=== PATIENT | female | born 1970 | race Caucasian/White ===

== ENCOUNTER 2017-02-18 14:35 | Observation (INO) | payer OTHER ==
--- NOTE | 2017-02-18 14:43 | PDOC ---
Rapid Medical Evaluation Time Seen by Provider: 02/18/17 14:41 Medical Evaluation: Allergies Allergy/AdvReac Type Severity Reaction Status Date / Time Penicillins Allergy Verified 02/18/17 14:40 shellfish derived Allergy Verified 02/18/17 14:40 02/18/17 14:41 I have performed a brief in-person evaluation of this patient. 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 Better now. H/o anemia s/p transfusion in the past and asthma Pertinent physical exam findings:Well maría and stable w/ unremarkable exam I have ordered the following:ekg The patient will proceed to the ED for further evaluation. 02/18/17 14:43 Discharge Disposition - Referrals Referrals: Sally Christine MD [Primary Care Provider] - - Patient Instructions - Post Discharge Activity
[2017-02-18 14:44] VITALS: BMI 30.9
--- NOTE | 2017-02-18 15:43 | PDOC ---
History of Present Illness - General Chief Complaint: Blood Pressure Problem Stated Complaint: Blood Pressure Problem Time Seen by Provider: 02/18/17 14:41 History Source: Patient Exam Limitations: No Limitations - History of Present Illness Initial Comments: 02/18/17 16:13 My chief complaint: Right-sided chest pain with shortness of breath after running after a student at around 1:15 today History of present illness: Patient is a 46-year-old female with a history of asthma, borderline hypertension, cancerous colon polyp and iron deficiency anemia requiring transfusion 2011 here today due to patient becoming short of breath and having right-sided chest pain with palpitations when she 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 Patient denies any wheezing. Patient reports that chest pain, with palpitations and shortness of breath lasted approximately 30 minutes to 45 minutes. Patient was seen by the nurse at the school and her blood pressure was noted to be 180/ 80. Patient's blood pressure at 1:30 improved was 160/84. Patient blood pressure at 1620 p.m. was 170/90 however patient did not have any shortness of breath or chest pain at that time. Denied having any cough or any wheezing during this period of time. Patient reports that she had a D&C at 08/2016 and was on iron tablets until November 2016, she was told by her primary care provider to alternate amount however patient decided to stop taking iron altogether due to it bothering her stomach with constipation. Patient denies that she has been feeling tired or short of breath or having any difficulty breathing prior to today's event. Patient presently denies any chest pain or any shortness of breath or any palpitations. She reports that her periods are less heavy since D & C. 02/18/17 16:33 02/18/17 16:39 Timing/Duration: gone Associated Symptoms: reports: chest pain (right sided ), shortness of breath, other (palpitiations ) Past History - Past Medical History Allergies/Adverse Reactions: Allergies Allergy/AdvReac Type Severity Reaction Status Date / Time Penicillins Allergy Verified 02/18/17 14:40 shellfish derived Allergy Verified 02/18/17 14:40 Home Medications: Ambulatory Orders Ferrous Sulfate [Feosol] 35 mg PO DAILY 01/23/15 Anemia: Yes Asthma: Yes (SEASONAL ASTHMA) Cancer: Yes (DESCENDING COLON CANCER 2014-polyp was removed) Cardiac Disorders: No CVA: No COPD: No CHF: No DVT: No Dementia: No Diabetes: No GI Disorders: No Disorders: No HTN: No Hypercholesterolemia: No Liver Disease: No Seizures: No Thyroid Disease: No - Surgical History Abdominal Surgery: No Appendectomy: No Cardiac Surgery: No Cholecystectomy: No Lung Surgery: No Neurologic Surgery: No Orthopedic Surgery: No - Suicide/Smoking/Psychosocial Hx Smoking History: Never smoked Have you smoked in the past 12 months: No Information on smoking cessation initiated: No Hx Alcohol Use: No Drug/Substance Use Hx: No Substance Use Type: None Hx Substance Use Treatment: No Review of Systems - Review of Systems Able to Perform ROS?: Yes Constitutional: No: Symptoms Reported HEENTM: No: Symptoms Reported Respiratory: Yes: Shortness of Breath, SOB with Exertion Cardiac (ROS): Yes: Chest Pain (right sided ), Palpitations, Chest Tightness ABD/GI: No: Symptoms Reported : No: Symptoms Reported Musculoskeletal: No: Symptoms Reported Integumentary: No: Symptoms Reported Neurological: No: Symptoms reported *Physical Exam - Vital Signs Last Vital Signs Temp Pulse Resp BP Pulse Ox 98.1 F 96 H 18 165/92 100 02/18/17 14:41 02/18/17 14:41 02/18/17 14:41 02/18/17 14:41 02/18/17 14:41 - Physical Exam General Appearance: Yes: Appropriately Dressed HEENT: positive: Normal ENT Inspection, Other (conjunctiva b/l pale ) Respiratory/Chest: positive: Lungs Clear, Normal Breath Sounds. negative: Chest Tender, Respiratory Distress Cardiovascular: positive: Regular Rhythm, Regular Rate, S1, S2 Integumentary: positive: Normal Color Neurologic: positive: Fully Oriented, Alert, Normal Response Heart Score/ECG Review - ECG Impressions Comment:: 02/18/17 16:[address] Andre CHU Treatment Course - LABORATORY CBC & Chemistry Diagram: 02/18/17 15:41 02/18/17 16:57 Medical Decision Making - Medical Decision Making 02/18/17 16:25 Patient is a 46-year-old female with a history of asthma, borderline hypertension and iron deficiency anemia requiring transfusion 2012 here today due to patient becoming short of breath and having right-sided chest pain with palpitations when she had to run after a student at her job today that was trying to leave at approximately 1:15 today. She denies wheezing. Patient reports that chest pain, with palpitations and shortness of breath lasted approximately 30 minutes to 45 minutes. Patient was seen by the nurse at the school and her blood pressure was noted to be 180/80. Patient's blood pressure at 1:30 improved was 160/84. Patient blood pressure at 1620 p.m. was 170/90 however patient did not have any shortness of breath or chest pain at that time. Denied having any cough or any wheezing during this period of time. Patient reports that she had a D&C at 08/2016 and was on iron tablets until November 2016, she was told by her primary care provider to alternate amount however patient decided to stop taking iron altogether due to it bothering her stomach with constipation. Patient denies that she has been feeling tired or short of breath or having any difficulty breathing prior to today's event. Patient presently denies any chest pain or any shortness of breath or any palpitations. 02/18/17 16:35 Elevated BP right sided chest pain 'shortness of breath resolved prior to arrival here R/O worsening anemia PLAN: EKG reviewed by Dr. Powell CBC with Diff 02/18/17 16:36 Laboratory Tests 02/18/17 15:41 WBC 4.1 RBC 3.98 Hgb 7.0 L Hct 24.0 L MCV 60.2 L MCH 17.5 L MCHC 29.1 L RDW 20.9 H Plt Count 361 MPV 8.8 Neutrophils % 58.8 Lymphocytes % 30.2 Monocytes % 9.5 Eosinophils % 0.8 Basophils % 0.7 pt. is able enough to be moved to main ED for further evaluation of symptomatic worsening anemia Vannessa Charge Nurse aware Dr. Powell 02/18/17 16:40 *DC/Admit/Observation/Transfer Diagnosis at time of Disposition: Symptomatic anemia - Discharge Dispostion Condition at time of disposition: Stable - Referrals Referrals: Sally Christine MD [Primary Care Provider] - - Patient Instructions - Post Discharge Activity
[2017-02-18 15:50] LABS: BASOPHIL 0.7 % (0-2.0); EOSINOPHIL 0.8 % (0-4.5); MCHC 29.1 g/dl (32.0-36.0); MEAN CELL VOLUME 60.2 fl (80-96); MEAN PLT VOLUME 8.8 fl (7.5-11.1); NEUTROPHILS 58.8 % (42.8-82.8); PLATELET COUNT 361 K/MM3 (134-434); RDW 20.9 % (11.6-15.6); WHITE BLOOD COUNT 4.1 K/mm3 (4.0-10.0)
[2017-02-18 16:00] LABS: MCH 17.5 pg (25.7-33.7)
[2017-02-18 17:18] LABS: INR 1.16 (0.82-1.09); PROTHROMBIN TIME (PATIENT) 13.1 SEC (9.98-11.88)
--- NOTE | 2017-02-18 17:30 | PDOC ---
*Physical Exam - Vital Signs Last Vital Signs Temp Pulse Resp BP Pulse Ox 98.1 F 96 H 18 165/92 100 02/18/17 14:41 02/18/17 14:41 02/18/17 14:41 02/18/17 14:41 02/18/17 14:41 - Physical Exam Comments: 02/18/17 17:55 The patient is a 46 year old female with a significant PMH of anemia who presents to the emergency department with tight chest pain and shortness of breath while running after a student today. The patient states she has had transfusions in the past. The patient reports she has not been taking her iron supplements due to side effects. The patient notes that she is presently feeling much better. The patient denies headache and dizziness. Denies fever, chills, nausea, vomit, diarrhea and constipation. Allergies: Penicillins, shellfish Past surgical history: None reported Social history: No reported cigarette, drug, or alcohol use. PCP: Dr. Guardado GENERAL: Awake, alert, and fully oriented, in no acute distress HEAD: No signs of trauma EYES: PERRLA, EOMI, sclera anicteric, conjunctiva clear ENT: Auricles normal inspection, hearing grossly normal, nares patent, oropharynx clear without exudates. Moist mucosa NECK: Normal ROM, supple, no lymphadenopathy, JVD, or masses LUNGS: Breath sounds equal, clear to auscultation bilaterally. No wheezes, and no crackles HEART: Regular rate and rhythm, normal S1 and S2, no murmurs, rubs or gallops ABDOMEN: Soft, nontender, normoactive bowel sounds. No guarding, no rebound. No masses EXTREMITIES: Normal range of motion, no edema. No clubbing or cyanosis. No cords, erythema, or tenderness NEUROLOGICAL: Cranial nerves II through XII grossly intact. Normal speech, normal gait SKIN: Warm, Dry, normal turgor, no rashes or lesions noted. <Liliana Quick - Last Filed: 02/18/17 17:55> - Vital Signs Last Vital Signs Temp Pulse Resp BP Pulse Ox 98.1 F 96 H 18 165/92 100 02/18/17 14:41 02/18/17 14:41 02/18/17 14:41 02/18/17 14:41 02/18/17 14:41 <Sarah Powell - Last Filed: 02/18/17 19:14> ED Treatment Course - LABORATORY CBC & Chemistry Diagram: 02/18/17 15:41 02/18/17 16:57 - ADDITIONAL ORDERS Additional order review: Laboratory Results 02/18/17 16:57 PT with INR 13.10 H INR 1.16 H 02/18/17 15:41 RBC 3.98 MCV 60.2 L MCHC 29.1 L RDW 20.9 H MPV 8.8 Neutrophils % 58.8 Lymphocytes % 30.2 Monocytes % 9.5 Eosinophils % 0.8 Basophils % 0.7 <Liliana Quick - Last Filed: 02/18/17 17:55> - LABORATORY CBC & Chemistry Diagram: 02/18/17 15:41 02/18/17 16:57 - ADDITIONAL ORDERS Additional order review: 02/18/17 15:41 RBC 3.98 MCV 60.2 L MCHC 29.1 L RDW 20.9 H MPV 8.8 Neutrophils % 58.8 Lymphocytes % 30.2 Monocytes % 9.5 Eosinophils % 0.8 Basophils % 0.7 <Sarah Powell - Last Filed: 02/18/17 19:14> *DC/Admit/Observation/Transfer - Attestations Scribe Attestion: 02/18/17 18:00 Documentation prepared by Liliana Quick, acting as medical equipment repair technician for Sarah Powell MD. <Liliana Quick - Last Filed: 02/18/17 17:55> - Discharge Dispostion Admit: Yes <Sarah Powell - Last Filed: 02/18/17 19:14> Diagnosis at time of Disposition: Symptomatic anemia - Discharge Dispostion Condition at time of disposition: Stable - Referrals Referrals: Sally Christine MD [Primary Care Provider] - - Patient Instructions - Post Discharge Activity
[2017-02-18 17:48] LABS: ANISOCYTOSIS 2+; HYPOCHROMIA 3+; MICROCYTOSIS 2+; OVALOCYTE 1+; POLYCHROMASIA 1+; TARGET CELLS 2+; TEAR DROP CELLS FEW
[2017-02-18 18:07] LABS: ALBUMIN 3.8 g/dl (3.4-5.0); ANION GAP 5 (8-16); BILIRUBIN,TOTAL 0.3 mg/dL (0.2-1.0); CALCIUM 8.3 mg/dL (8.5-10.1); CO2 27 mmol/L (21-32); CREATININE 0.6 mg/dL (0.55-1.02); GLUCOSE,RANDOM 89 mg/dL (74-106); SGOT/AST 16 U/L (15-37); SGPT/ALT 15 U/L (12-78); TOT PROT 7.3 g/dl (6.4-8.2)
[2017-02-18 18:08] LABS: ALK PHOS 88 U/L (45-117)
[2017-02-18 18:15] LABS: FERRITIN 2.348 ng/ml (6.9-282.5)
--- NOTE | 2017-02-18 19:31 | PN ---
Teaching Attending Note Name of Resident: Preet Choe ATTENDING PHYSICIAN STATEMENT I saw and evaluated the patient. I reviewed the resident's note and discussed the case with the resident. I agree with the resident's findings and plan as documented. SUBJECTIVE: 46 yo F with hx of Asthma, htn, cancerous colon polp, and fe def anemia, who presents with chest pain and shortness of breath. States she was running after a student when it happened. States her chest pain and shortness of breath lasted about 30-45 minutes. States she was seen by the nurse at school and was found to have elevated BP at 180/80. It improved after to 160/84. Pt. States her Chest Pain was on the right side and resolved after rest. No current chest pain, pressure, or shortness of breath. States she had a recent colonoscopy with polyp removal, that was deemed to be cancerous. States she also had a D &C for a fibriod and her periods have become manageable, last period being at the end of January. States she did not use excessive pads and her periods were light. No dizziness or lightheadedness. OBJECTIVE: Physical: VS: Vital Signs Period Temp Pulse Resp BP Sys/Argueta Pulse Ox Last 24 Hr 98.1 F 96 18 165/92 100 GEN: NAD, Resting in bed, able to speak full sentences HEENT: NCAT, PERRL, Throat without erythema or exudates CARD: RRR S1, S2 RESP: CTAB ABD: BSX4, NTD to palpation EXT: - C/C/E RECTAl: Defferred CBCD WBC 4.1 K/mm3 (4.0-10.0) 02/18/17 15:41 RBC 3.98 M/mm3 (3.60-5.2) 02/18/17 15:41 Hgb 7.0 GM/dL (10.7-15.3) L 02/18/17 15:41 Hct 24.0 % (32.4-45.2) L 02/18/17 15:41 MCV 60.2 fl (80-96) L 02/18/17 15:41 MCHC 29.1 g/dl (32.0-36.0) L 02/18/17 15:41 RDW 20.9 % (11.6-15.6) H 02/18/17 15:41 Plt Count 361 K/MM3 (134-434) 02/18/17 15:41 MPV 8.8 fl (7.5-11.1) 02/18/17 15:41 CMP Sodium 139 mmol/L (136-145) 02/18/17 16:57 Potassium 3.9 mmol/L (3.5-5.1) 02/18/17 16:57 Chloride 107 mmol/L (98-107) 02/18/17 16:57 Carbon Dioxide 27 mmol/L (21-32) 02/18/17 16:57 Anion Gap 5 (8-16) L 02/18/17 16:57 BUN 12 mg/dL (7-18) 02/18/17 16:57 Creatinine 0.6 mg/dL (0.55-1.02) 02/18/17 16:57 Creat Clearance w eGFR > 60 (>60) 02/18/17 16:57 Calcium 8.3 mg/dL (8.5-10.1) L 02/18/17 16:57 Total Bilirubin 0.3 mg/dL (0.2-1.0) 02/18/17 16:57 AST 16 U/L (15-37) 02/18/17 16:57 ALT 15 U/L (12-78) 02/18/17 16:57 Alkaline Phosphatase 88 U/L (45-117) 02/18/17 16:57 Total Protein 7.3 g/dl (6.4-8.2) 02/18/17 16:57 Albumin 3.8 g/dl (3.4-5.0) 02/18/17 16:57 CXR- PENDING EKG- NSR- NO St-T changes ASSESSMENT AND PLAN: 46 yo F with hx of Asthma, htn, cancerous colon polp, and fe def anemia, who presents with chest pain and shortness of breath, being admitted for Symptomatic Anemia 1.) Microcytic Anemia- Symptomatic - Severe FE Defeciency - FU Rest of iron studies, Ferritin 2 - 1U PRBC, recheck CBC - Keep Hgb >7 - Needs outpt. heme fu for Venofer - Had prior normalo Hgb so doubt thallesemia - Stool Occult when pt. willing 2.) Chest Pain-Atypical - Most likely caused by Anemia - Trend Trop 3.) Hx. Of Cancerous Polyp - Needs fu GI - Heme for Salmon syndrome eval 4.) HTN - Start HCTZ low dose - Needs to be followed by PCP oupt 5.) Asthma - Not in Exacerbation - Nebs Prn 6.) Dvt Ppx - Low Risk - SCDs Place in Obs-Tele
--- NOTE | 2017-02-18 19:56 | HP ---
CHIEF COMPLAINT: Chest tightness and SOB HISTORY OF PRESENT ILLNESS: 46yo F with history of asthma and iron deficiency anemia who presents to the ED for shortness of breath and R-sided nonradiating chest tightness. 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 She reports her chest pain lasting for about 30-45 minutes. Pt denies any associated jaw claudication, dizziness/lightheadedness, and wheezing during her CP episode. Pt's LMP was end of January described as normal in flow, however she received a D&C for fibroids in August 2016 of this year. Pt also reports she previously was transfused in 2011 thought to be due to a colon polyp found to be cancerous for which received a polypectomy with negative margins. Pt was also found to have a BP of 180/80 at the time of her CP event with repeat showing 160/84. Pt reports always having "borderline HTN," however today she is reporting having a headache. She states she has never taken anything for her HTN and has been controlling her BP with diet and exercise. Denies visual disturbances with her headache and any motor/sensory deficits. ER course was notable for: (1) CBC revealing Hgb of 7.0 (2) Transfusion of 1U PRBC PAST MEDICAL HISTORY: Asthma exacerbated by seasonal allergies Cancerous colon polyp (s/p polypectomy with clear margins) Iron deficiency anemia PAST SURGICAL HISTORY: Colonoscopy with polypectomy x2 Social History: Smoking: Denies Alcohol: Denies Drugs: Denies Allergies Penicillins Allergy (Verified 02/18/17 14:40) shellfish derived Allergy (Verified 02/18/17 14:40) HOME MEDICATIONS: Home Medications Medication Instructions Recorded Ferrous Sulfate [Feosol] 35 mg PO DAILY 01/23/15 REVIEW OF SYSTEMS CONSTITUTIONAL: Absent: fever, chills, diaphoresis, generalized weakness, malaise, loss of appetite, weight change HEENT: Absent: rhinorrhea, nasal congestion, throat pain, throat swelling, difficulty swallowing, mouth swelling, ear pain, eye pain, visual changes CARDIOVASCULAR: Present: Chest Pain Absent: syncope, palpitations, irregular heart rate, lightheadedness, peripheral edema RESPIRATORY: Present: Shortness of breath Absent: cough, dyspnea with exertion, orthopnea, wheezing, stridor, hemoptysis GASTROINTESTINAL: Absent: abdominal pain, abdominal distension, nausea, vomiting, diarrhea, constipation, melena, hematochezia GENITOURINARY: Absent: dysuria, frequency, urgency, hesitancy, hematuria, flank pain, genital pain MUSCULOSKELETAL: Absent: myalgia, arthralgia, joint swelling, back pain, neck pain SKIN: Absent: rash, itching, pallor HEMATOLOGIC/IMMUNOLOGIC: Absent: easy bleeding, easy bruising, lymphadenopathy, frequent infections ENDOCRINE: Absent: unexplained weight gain, unexplained weight loss, heat intolerance, cold intolerance NEUROLOGIC: Present: Headache Absent: focal weakness or paresthesias, dizziness, unsteady gait, seizure, mental status changes, bladder or bowel incontinence PSYCHIATRIC: Absent: anxiety, depression, suicidal or homicidal ideation, hallucinations. PHYSICAL EXAMINATION Vital Signs - 24 hr 02/18/17 14:41 Temperature 98.1 F Pulse Rate 96 H Respiratory 18 Rate Blood Pressure 165/92 O2 Sat by Pulse 100 Oximetry (%) GENERAL: NAD, alert, awake HEENT: No JVD, pale mucosa, moist mucosa, no scleral icterus or injections LUNGS: CTA bilaterally. No wheezes, rhonchi, rales. No accessory muscle use. HEART: RRR, normal S1 and S2 without murmur ABDOMEN: Soft, nontender, nondistended, normoactive bowel sounds, no guarding, no rebound. No hepatomegaly. MUSCULOSKELETAL: No bony deformities or tenderness. No CVA tenderness. EXTREMITIES: 2+ DP pulses, warm, No edema, Cap refill <2sec, no calf tenderness NEUROLOGICAL: Nonfocal. Normal speech. Normal gait. PSYCHIATRIC: Cooperative. Good eye contact. Appropriate mood and affect. SKIN: Warm, no rashes or lesions noted Laboratory Results - last 24 hr 02/18/17 02/18/17 02/18/17 15:41 16:40 16:57 WBC 4.1 RBC 3.98 Hgb 7.0 L Hct 24.0 L MCV 60.2 L MCH 17.5 L MCHC 29.1 L RDW 20.9 H Plt Count 361 MPV 8.8 Neutrophils % 58.8 Lymphocytes % 30.2 Monocytes % 9.5 Eosinophils % 0.8 Basophils % 0.7 Hypochromia 3+ Platelet Comment Polychromasia 1+ Anisocytosis 2+ Microcytosis 2+ Target Cells 2+ Tear Drop Cells Few Ovalocytes 1+ Retic Count PT with INR 13.10 H INR 1.16 H Sodium Potassium Chloride Carbon Dioxide Anion Gap BUN Creatinine Creat Clearance w eGFR Random Glucose Calcium Ferritin 2.348 L Total Bilirubin AST ALT Alkaline Phosphatase LD Total 208 Total Protein Albumin Serum , Qual Blood Type Antibody Screen Crossmatch 02/18/17 02/18/17 02/18/17 16:57 16:57 16:57 WBC RBC Hgb Hct MCV MCH MCHC RDW Plt Count MPV Neutrophils % Lymphocytes % Monocytes % Eosinophils % Basophils % Hypochromia Platelet Comment Polychromasia Anisocytosis Microcytosis Target Cells Tear Drop Cells Ovalocytes Retic Count 1.38 PT with INR INR Sodium 139 Potassium 3.9 Chloride 107 Carbon Dioxide 27 Anion Gap 5 L BUN 12 Creatinine 0.6 Creat Clearance w eGFR > 60 Random Glucose 89 Calcium 8.3 L Ferritin Total Bilirubin 0.3 AST 16 ALT 15 Alkaline Phosphatase 88 LD Total Total Protein 7.3 Albumin 3.8 Serum , Qual Blood Type B POSITIVE Antibody Screen Negative Crossmatch See Detail 02/18/17 18:37 WBC RBC Hgb Hct MCV MCH MCHC RDW Plt Count MPV Neutrophils % Lymphocytes % Monocytes % Eosinophils % Basophils % Hypochromia Platelet Comment Polychromasia Anisocytosis Microcytosis Target Cells Tear Drop Cells Ovalocytes Retic Count PT with INR INR Sodium Potassium Chloride Carbon Dioxide Anion Gap BUN Creatinine Creat Clearance w eGFR Random Glucose Calcium Ferritin Total Bilirubin AST ALT Alkaline Phosphatase LD Total Total Protein Albumin Serum , Qual Negative Blood Type Antibody Screen Crossmatch ASSESSMENT/PLAN: 46yo F with history of iron deficiency anemia and asthma who developed shortness of breath and chest tightness when running after a kid at work. Pt has resolution of symptoms currently with exception of headache. Hgb 7.0, receiving 1U PRBC currently. 1) Microcytic Anemia --2/2 to chronic iron deficiency anemia --Hgb 7.0 currently --Transfuse 1U PRBC (type and screen already worked up) --CBC trend in morning --Continue iron supplementation --Ferritin of 2.348 --Will need outpt follow-up with Hematology --Pt currently in Desk bed of ER so hemoccult deferred --Will reassess when in hospital room to obtain stool guiaic. 2) Atypical chest pain --Atypical due to timing, location, associated symptoms --Most likely 2/2 to anemia and asthma --EKG - NSR without std/lorena, normal axis, QTc --Troponin ordered 3) Hypertension --Monitor BP --Norvasc 5mg PO once due to elevated BP currently --Currently BP 165/92 FEN: Fluids: Not indicated currently Electrolyte abnormalities: None currently Nutrition: Regular Diet PPX: DVT - Early ambulation Dispo: Place into tele obs Case discussed with Dr. Kurt Liao, DO - Internal Medicine PGY-1 Visit type - Emergency Visit Emergency Visit: Yes ED Registration Date: 02/18/17 Care time: The patient presented to the Emergency Department on the above date and was hospitalized for further evaluation of their emergent condition. - New Patient This patient is new to me today: Yes Date on this admission: 02/20/17 - Critical Care Critical Care patient: No
[2017-02-18] MEDS ORDERED: ACETAMINOPHEN 325 MG TABLET (FP) PO ONE (20:00)
[2017-02-18] MEDS ORDERED: amLODIPine BESYLATE 5 MG TABLET (FP) PO ONE (20:00)
[2017-02-18] MEDS ORDERED: amLODIPine BESYLATE 5 MG TABLET (FP) ONE (20:18)
[2017-02-18] MEDS ORDERED: ACETAMINOPHEN 325 MG TABLET (FP) ONE (20:18)
[2017-02-19 04:06] LABS: URINE APPEARANCE CLEAR; URINE BILIRUBIN NEGATIVE (NEGATIVE); URINE BLOOD 2+ (NEGATIVE); URINE COLOR STRAW; URINE GLUCOSE (UA) NEGATIVE (NEGATIVE); URINE KETONE TRACE (NEGATIVE); URINE NITRITE NEGATIVE (NEGATIVE); URINE PROTEIN NEGATIVE (NEGATIVE); URINE UROBILINOGEN NEGATIVE mg/dL (0.2-1.0)
[2017-02-19 04:12] LABS: URINE RBC 4 /hpf (0-3); URINE WBC 1 /hpf (3-5)
[2017-02-19 07:44] LABS: MCHC 29.6 g/dl (32.0-36.0); MEAN CELL VOLUME 62.3 fl (80-96); PLATELET COUNT 294 K/MM3 (134-434); RDW 22.4 % (11.6-15.6); WHITE BLOOD COUNT 3.4 K/mm3 (4.0-10.0)
[2017-02-19] MEDS ORDERED: IRON SUCROSE INJECTION 200 MG in SODIUM CHLORIDE 240 ML IVPB ONE (07:57)
[2017-02-19 08:04] LABS: MCH 18.4 pg (25.7-33.7)
--- NOTE | 2017-02-19 08:23 | EKG ---
Test Reason : Blood Pressure : / mmHG Vent. Rate : 090 BPM Atrial Rate : 090 BPM P-R Int : 144 ms QRS Dur : 080 ms QT Int : 344 ms P-R-T Axes : 062 021 034 degrees QTc Int : 420 ms NORMAL SINUS RHYTHM POSSIBLE LEFT ATRIAL ENLARGEMENT BORDERLINE ECG WHEN COMPARED WITH ECG OF 21-AUG-2016 16:12, NO SIGNIFICANT CHANGE WAS FOUND Confirmed by MD Crespo Daniel ([id number]) on 02/18/2017 3:06:19 PM Also confirmed by MD Crespo Daniel [id number]), business editor HARDIK COSME ([id number]) on 02/19/2017 8:23:41 AM Referred By: Confirmed By:Hardik Crespo MD
[2017-02-19] MEDS ORDERED: IRON SUCROSE INJECTION 200 MG in SODIUM CHLORIDE 100 ML IVPB ONE (08:45)
[2017-02-19] MEDS ORDERED: FLU VACCINE QUAD 60 MCG/0.5 ML (MDV 17-18) IM ONE (09:00)
[2017-02-19] MEDS ORDERED: FERROUS SO4 325 MG TABLET (FP) PO SCH (10:00)
[2017-02-19 12:20] LABS: URINE LEUK ESTERASE Negative (NEGATIVE)
--- NOTE | 2017-02-19 13:58 | CONSULT ---
Consult Consult Specialty:: Hematology Referred by:: MARBLE WORKER - History of Present Illness History of Present Illness: 46 yo F with hx of Asthma, htn, cancerous colon polp, and fe def anemia, who presents with chest pain and shortness of breath. S States she had a recent colonoscopy with polyp removal, that was deemed to be cancerous. States she also had a D &C for a fibriod and her periods have become manageable, last period being at the end of January. States she did not use excessive pads and her periods were light. No dizziness or lightheadedness. Hematology consulted for anemia. - History Source History Provided By: Patient, Family Member, Medical Record Limitations to Obtaining History: No Limitations - Past Medical History Gastrointestinal: Yes: GERD ...LMP: 08/11/16 - Past Surgical History Past Surgical History: Yes: , Upper Endoscopy - Alcohol/Substance Use Hx Alcohol Use: No History of Substance Use: reports: None - Smoking History Smoking history: Never smoked Have you smoked in the past 12 months: No - Social History History of Recent Travel: No Home Medications - Allergies Allergies/Adverse Reactions: Allergies Allergy/AdvReac Type Severity Reaction Status Date / Time Penicillins Allergy Verified 02/18/17 14:40 shellfish derived Allergy Verified 02/18/17 14:40 - Home Medications Home Medications: Ambulatory Orders Fe Polysac/Cyanocobal/FA [Niferex-150 Forte -] 1 each PO BID #60 capsule Polyethylene Glycol 3350 [Miralax (For Daily Use) -] 17 gm PO DAILY #1 bottle Family Disease History - Family Disease History Family History: Denies Review of Systems - Review of Systems Constitutional: denies: Fever, Lethargy, Loss of Appetite, Unintentional Wgt. Loss, Weakness Neck: denies: Decreased ROM, Lumps Cardiovascular: reports: Shortness of Breath. denies: Chest Pain, Edema Respiratory: reports: Exercise Intolerance, SOB. denies: Cough, Hemoptysis, Orthopnea, PND Musculoskeletal: reports: No Symptoms Integumentary: reports: No Symptoms Neurological: reports: No Symptoms Hematology/Lymphatic: reports: No Symptoms Physical Exam Vital Signs: Vital Signs Temperature 98.0 F 02/19/17 10:00 Pulse Rate 79 02/19/17 10:00 Respiratory Rate 18 02/19/17 10:00 Blood Pressure 142/86 02/19/17 10:00 O2 Sat by Pulse Oximetry (%) 98 02/19/17 12:00 Constitutional: Yes: Well Nourished, No Distress, Calm Eyes: Yes: Other (pale) HENT: Yes: Atraumatic, Normocephalic Neck: Yes: Supple, Trachea Midline Cardiovascular: Yes: Regular Rate and Rhythm Respiratory: Yes: Regular, CTA Bilaterally Gastrointestinal: Yes: Normal Bowel Sounds, Soft Edema: No Labs: CBC, BMP 02/19/17 05:35 02/18/17 16:57 Problem List - Problems (1) Symptomatic anemia Code(s): D64.9 - ANEMIA, UNSPECIFIED (2) Menorrhagia Code(s): N92.0 - EXCESSIVE AND FREQUENT MENSTRUATION WITH REGULAR CYCLE Qualifiers: Menorrahagia type: with irregular cycle Qualified Code(s): N92.1 - Excessive and frequent menstruation with irregular cycle (3) Endometrial polyp Code(s): N84.0 - POLYP OF CORPUS UTERI (4) Colon polyp Code(s): K63.5 - POLYP OF COLON Assessment/Plan Severe Iron def Anemia : chronic ( now new) ?etiology for 2 U PRBC Ferrex forte with stool softeners upon dc information on hematologists given to the pt ( [facility] and also [facility]) might need to be eval for Venofer in the OP setting she had underwent a thorough GI w/u as per her under care of including a colonoscopy this year. She has follow-up with him. H/o polyps: GI f/u no family hx. Needs [employer] f/u. d/w pt family and hospitalist.
--- NOTE | 2017-02-19 14:15 | DS ---
Physical Exam: SUBJECTIVE: Patient seen and examined. She feels well symptoms have resolved, no sob, chest pain, diaphoresis, ambulating w/o resp distress. OBJECTIVE: Vital Signs Period Temp Pulse Resp BP Sys/Argueta Pulse Ox Last 24 Hr 98.0 F-98.5 F 72-96 16-18 129-165/75-92 96-100 PE Neuro: alert, awake, cn 2-12intact Pulm: CTAB CV: s1 s2 rrr no mrg Abd: s nt nd + bs Ext: no le edema, warm le CBCD WBC 3.4 K/mm3 (4.0-10.0) L 02/19/17 05:35 RBC 4.21 M/mm3 (3.60-5.2) 02/19/17 05:35 Hgb 7.8 GM/dL (10.7-15.3) L D 02/19/17 05:35 Hct 26.2 % (32.4-45.2) L 02/19/17 05:35 MCV 62.3 fl (80-96) L 02/19/17 05:35 MCHC 29.6 g/dl (32.0-36.0) L 02/19/17 05:35 RDW 22.4 % (11.6-15.6) H 02/19/17 05:35 Plt Count 294 K/MM3 (134-434) 02/19/17 05:35 MPV 9.0 fl (7.5-11.1) 02/19/17 05:35 CMP Sodium 139 mmol/L (136-145) 02/18/17 16:57 Potassium 3.9 mmol/L (3.5-5.1) 02/18/17 16:57 Chloride 107 mmol/L (98-107) 02/18/17 16:57 Carbon Dioxide 27 mmol/L (21-32) 02/18/17 16:57 Anion Gap 5 (8-16) L 02/18/17 16:57 BUN 12 mg/dL (7-18) 02/18/17 16:57 Creatinine 0.6 mg/dL (0.55-1.02) 02/18/17 16:57 Creat Clearance w eGFR > 60 (>60) 02/18/17 16:57 Calcium 8.3 mg/dL (8.5-10.1) L 02/18/17 16:57 Total Bilirubin 0.3 mg/dL (0.2-1.0) 02/18/17 16:57 AST 16 U/L (15-37) 02/18/17 16:57 ALT 15 U/L (12-78) 02/18/17 16:57 Alkaline Phosphatase 88 U/L (45-117) 02/18/17 16:57 Total Protein 7.3 g/dl (6.4-8.2) 02/18/17 16:57 Albumin 3.8 g/dl (3.4-5.0) 02/18/17 16:57 02/18/17 02/18/17 02/18/17 16:40 16:50 16:57 Retic Count Haptoglobin Pending PT with INR 13.10 H INR 1.16 H Iron TIBC Iron Saturation Ferritin 2.348 L Troponin I 02/18/17 02/18/17 02/18/17 16:57 17:30 20:15 Retic Count 1.38 Haptoglobin PT with INR INR Iron Pending TIBC Pending Iron Saturation Pending Ferritin Troponin I < 0.02 HOSPITAL COURSE: Date of Admission:02/18/17 Date of Discharge: 02/19/17 Minutes to complete discharge: 38 Discharge Summary Reason For Visit: SEVERE ANEMIA Current Active Problems Symptomatic anemia (Acute) Hospital Course: Initial Hospital Course: Briefly, this 46 year old female with history of asthma, HTN, and iron deficiency anemia, cancerous colon polp (removed, negative margins thus far, Dr. Goss) admitted with acute shortness of breath and R-sided nonradiating chest tightness. 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 Chest pain lasting for about 30-45 minutes. Pt denied any associated jaw claudication, dizziness/lightheadedness, and wheezing during her CP episode. Pt's LMP was end of January described as normal in flow, and had a D&C for fibroids in August 2016 of this year. Pt was also found to have a BP of 180/80 at the time of her CP event with repeat showing 160/84. Pt reports always having "borderline HTN," however today she is reporting having a headache. She states she has never taken anything for her HTN and has been controlling her BP with diet and exercise. Denies visual disturbances with her headache and any motor/sensory deficits. Subsequent Hospital Course/Progress Note/DC summary: Plan: 1. Severe Iron def Anemia, Acute on chronic - S/p 2UPRBC - x1 200mg IV venofer infusion, outpt eval for continued infusions - Home with Ferrex forte - Hematology evaluation, pt given information for [facility] and [facility] for heme followup , myself and heme d/w pt. She understands and agrees. - Outpt GI follow up with Dr. Goss, he/pt are aware Dispo: - Home with above plan - Pt aware and agrees to above plan Condition: Stable - Instructions Diet, Activity, Other Instructions: Please return to the ED for any new, persistent, or worsening symptoms. Follow up with your PCP in 1 week Take new iron supplements as directed, they have been sent to your pharmacy You will need a referral from your PCP for hematology evaluation, clinic referral information: [address] [phone] Dr. Benjamin information enclosed as well You will need to follow up with Dr. Goss in the next 2 weeks for follow up visit Referrals: Zach Goss DO [Staff Physician] - 2 Weeks (follow up) Karla Mena MD [Staff Physician] - 02/25/17 (First floor of [facility] ) Sally Christine MD [Primary Care Provider] - Disposition: HOME - Home Medications Comprehensive Discharge Medication List: Ambulatory Orders Fe Polysac/Cyanocobal/FA [Niferex-150 Forte -] 1 each PO BID #60 capsule Polyethylene Glycol 3350 [Miralax (For Daily Use) -] 17 gm PO DAILY #1 bottle This patient is new to me today: Yes Date on this admission: 02/19/17 Emergency Visit: Yes ED Registration Date: 02/18/17 Care time: The patient presented to the Emergency Department on the above date and was hospitalized for further evaluation of their emergent condition. Critical Care patient: No - Discharge Referral Referred to [facility] Med P.C.: No
[2017-02-19] MEDS ORDERED: FE POLYSAC/CYANOCOBAL/FA COMBO CAPSULE PO SCH (14:45)
[2017-02-19 14:49] VITALS: BP 145/83; PULSE 81; TEMP 98.1
[2017-02-20 06:08] LABS: SERUM IRON 12 ug/dL (27-159); TOTAL IRON BINDING CAPACITY 401 ug/dL (250-450); UIBC 389 ug/dL (131-425)
[2017-02-20 06:08] LABS: HAPTOGLOBIN 144 mg/dL (34-200); TRANSFERRIN 345 mg/dL (200-370)
== END 2017-02-19 16:39 | disposition home or self-care (01) ==
LOC: JER 14:35 → JERFT 14:35 → JERBED 19:14 → J8W 02-19 00:19
PROVIDERS: ADMIT Internal Medicine; ATTEND Nurse Practitioner Acute Care
PROC: 3E033GC Introduction of Other Therapeutic Substance into Peripheral Vein, Percutaneous Approach (ICD-10-PCS; principal; 2017-02-18)
PROC: 3E01340 Introduction of Influenza Vaccine into Subcutaneous Tissue, Percutaneous Approach (ICD-10-PCS; 2017-02-18)
DX: D50.8 Other iron deficiency anemias (principal); I10 Essential (primary) hypertension; N92.1 Excessive and frequent menstruation with irregular cycle; Z86.010 Personal history of colon polyps
CPT/HCPCS: 36415; 36430; 80053; 81003; 81015; 82728; 83010; 83540; 83550; 83615; 84466; 84484; 84703; 85025; 85027; 85044; 85610; 86922; 90471; 90688; 93005; 93010; 96365; 99285-25; G0378; J1756; P9038; P9058

== ENCOUNTER 2017-08-02 06:39 | Inpatient (IN) | payer OTHER ==
[2017-08-02 07:21] VITALS: BMI 34.0
--- NOTE | 2017-08-02 07:22 | PDOC ---
History of Present Illness - General History Source: Patient Exam Limitations: No Limitations - History of Present Illness Initial Comments: 08/02/17 07:12 Patient is a 47F with history of cancerous colon polyp removal, anemia, and heavy vaginal bleeding here today complaining of vaginal bleeding for the past two weeks with associated generalized weakness and shortness of breath. Patient states that she had a cbc done yesterday which showed a hgb of 5.3. Patient states that she's been struggling with heavy vaginal bleeding for several years. Has history of DNC by Dr Ortiz last year. Denies history of coagulopathy and cancer. Patient denies nausea, vomiting, fevers, chills. Denies chest pain. PCP: Dr Filipe ESPOSITO: None currently, History of DNC by Dr Ortiz <Ren Quiñonez - Last Filed: 08/02/17 09:59> <Mary Thakur - Last Filed: 08/02/17 11:11> - General Stated Complaint: DIZZINESS Time Seen by Provider: 08/02/17 06:57 Past History - Past Medical History Anemia: Yes Asthma: Yes (SEASONAL ASTHMA) Cancer: Yes (DESCENDING COLON CANCER 2015-polyp was removed) Cardiac Disorders: No CVA: No COPD: No CHF: No DVT: No Dementia: No Diabetes: No GI Disorders: No Disorders: No HTN: No Hypercholesterolemia: No Liver Disease: No Seizures: No Thyroid Disease: No - Surgical History Abdominal Surgery: No Appendectomy: No Cardiac Surgery: No Cholecystectomy: No Lung Surgery: No Neurologic Surgery: No Orthopedic Surgery: No - Suicide/Smoking/Psychosocial Hx Smoking History: Never smoked Have you smoked in the past 12 months: No Hx Alcohol Use: No Drug/Substance Use Hx: No Substance Use Type: None Hx Substance Use Treatment: No <Ren Quiñonez - Last Filed: 08/02/17 09:59> <Mary Thakur - Last Filed: 08/02/17 11:11> - Past Medical History Allergies/Adverse Reactions: Allergies Allergy/AdvReac Type Severity Reaction Status Date / Time Penicillins Allergy Verified 08/02/17 07:46 shellfish derived Allergy Verified 08/02/17 07:46 Home Medications: Ambulatory Orders Fe Polysac/Cyanocobal/FA [Niferex-150 Forte -] 1 each PO BID #60 capsule Polyethylene Glycol 3350 [Miralax (For Daily Use) -] 17 gm PO DAILY #1 bottle Review of Systems - Review of Systems Able to Perform ROS?: Yes Comments:: 08/02/17 07:33 GENERAL/CONSTITUTIONAL: No fever or chills. Positive for diffuse weakness. HEAD, EYES, EARS, NOSE AND THROAT: No change in vision. No sore throat. CARDIOVASCULAR: No chest pain. Positive for shortness of breath RESPIRATORY: No cough, wheezing, or hemoptysis. GASTROINTESTINAL: No nausea, vomiting, diarrhea or constipation. GENITOURINARY: No dysuria, frequency, or change in urination. SKIN: No rash NEUROLOGIC: No headache, vertigo, loss of consciousness, or change in strength/ sensation. ENDOCRINE: No increased thirst. No abnormal weight change HEMATOLOGIC/LYMPHATIC: Positive for history of anemia, easy bleeding. Negative for history of blood clots. ALLERGIC/IMMUNOLOGIC: No hives or skin allergy. <Ren Quiñonez - Last Filed: 08/02/17 09:59> *Physical Exam - Physical Exam Comments: 08/02/17 07:34 GENERAL: Awake, alert, and fully oriented, in no acute distress HEAD: No signs of trauma, normocephalic, atraumatic EYES: PERRLA, EOMI, sclera anicteric, conjunctiva clear ENT: Auricles normal inspection, hearing grossly normal, nares patent, oropharynx clear without exudates. Moist mucosa LUNGS: No distress, speaks full sentences, clear to auscultation bilaterally HEART: Regular rate and rhythm, normal S1 and S2, no murmurs, rubs or gallops, peripheral pulses normal and equal bilaterally. ABDOMEN: Soft, nontender, normoactive bowel sounds. No guarding, no rebound. No masses EXTREMITIES: Normal inspection, Normal range of motion, no edema. No clubbing or cyanosis. NEUROLOGICAL: Cranial nerves II through XII grossly intact. Normal speech, normal gait, no focal sensorimotor deficits SKIN: Warm, Dry, normal turgor, no rashes or lesions noted. <Ren Quiñonez - Last Filed: 08/02/17 09:59> - Vital Signs Last Vital Signs Temp Pulse Resp BP Pulse Ox 98 F 70 16 124/70 100 08/02/17 10:55 08/02/17 10:55 08/02/17 10:55 08/02/17 10:55 08/02/17 10:55 <Mary Thakur - Last Filed: 08/02/17 11:11> ED Treatment Course - LABORATORY CBC & Chemistry Diagram: 08/02/17 07:00 08/02/17 07:00 - RADIOLOGY Radiology Studies Ordered: Category Date Time Status CHEST X-RAY PORTABLE* [RAD] Stat Radiology 08/02/17 07:05 Ordered TRANSVAGINAL ULTRASOUND US [US] Stat Ultrasound 08/02/17 07:05 Ordered <Ren Quiñonez - Last Filed: 08/02/17 09:59> - LABORATORY CBC & Chemistry Diagram: 08/02/17 07:00 08/02/17 07:00 - ADDITIONAL ORDERS Additional order review: Laboratory Results 08/02/17 08/02/17 08/02/17 07:00 07:00 07:00 PT with INR 12.50 INR 1.11 Sodium 141 Potassium 4.0 Chloride 107 Carbon Dioxide 29 Anion Gap 5 L BUN 13 Creatinine 0.7 Creat Clearance w eGFR > 60 Random Glucose 95 Calcium 8.6 Total Bilirubin 0.4 D AST 20 ALT 12 Alkaline Phosphatase 87 Total Protein 6.8 Albumin 3.6 Blood Type B POSITIVE Antibody Screen Negative Crossmatch See Detail 08/02/17 07:00 RBC 3.33 L D MCV 62.5 L MCHC 30.1 L RDW 21.0 H MPV 9.4 <Mary Thakur - Last Filed: 08/02/17 11:11> Medical Decision Making - Medical Decision Making 08/02/17 07:34 Patient is 47F with history of anemia and vaginal bleeding here today with vaginal bleeding and likely symptomatic anemia. Vital signs stable and normal. Will evaluate with EKG, CBC, CMP, PT/INR, T/S, UA, UPREG. EKG shows normal sinus rhythm with rate of 83. No st elevation/depression. No significant t wave abnormalities. Normal axis. Normal QRS/QTc/IL intervals. 08/02/17 07:42 CXR shows no acute cardiopulmonary process. 08/02/17 08:37 Pelvic exam shows closed os, small amount of blood in vaginal vault, no cmt tenderness. 08/02/17 08:39 Laboratory Tests 08/02/17 08/02/17 08/02/17 07:00 07:00 07:00 WBC 3.4 L Hgb 6.3 L* D MCV 62.5 L INR 1.11 BUN 13 Creatinine 0.7 CBC shows hgb of 6.3. Will transfuse [address] out to [address] Ortiz. Will admit to obs for transfusion given symptomatic anemia. 08/02/17 09:59 US shows thickened endometrium, possible polyp. Dr Ortiz contacted, asked for consult, will see patient during stay. <Ren Quiñonez - Last Filed: 08/02/17 09:59> *DC/Admit/Observation/Transfer <Ren Quiñonez - Last Filed: 08/02/17 09:59> - Discharge Dispostion Decision to Admit order: Yes <Mary Thakur - Last Filed: 08/02/17 11:11> Diagnosis at time of Disposition: Severe anemia, Menorrhagia - Referrals Referrals: Sally Christine MD [Primary Care Provider] - - Patient Instructions - Post Discharge Activity
[2017-08-02 07:53] LABS: HEMATOCRIT 20.8 % (32.4-45.2); MCHC 30.1 g/dl (32.0-36.0); MEAN CELL VOLUME 62.5 fl (80-96); MEAN PLT VOLUME 9.4 fl (7.5-11.1); PLATELET COUNT 349 K/MM3 (134-434); RBC 3.33 M/mm3 (3.60-5.2); WHITE BLOOD COUNT 3.4 K/mm3 (4.0-10.0)
[2017-08-02 08:00] LABS: MCH 18.8 pg (25.7-33.7)
[2017-08-02 08:02] LABS: HEMOGLOBIN 6.3 GM/dL (10.7-15.3)
[2017-08-02 08:06] LABS: INR 1.11 (0.82-1.09); PROTHROMBIN TIME (PATIENT) 12.5 SEC (9.7-13.0)
[2017-08-02 08:22] LABS: ALBUMIN 3.6 g/dl (3.4-5.0); ALK PHOS 87 U/L (45-117); ANION GAP 5 (8-16); BILIRUBIN,TOTAL 0.4 mg/dL (0.2-1.0); BLOOD UREA NITROGEN 13 mg/dL (7-18); CALCIUM 8.6 mg/dL (8.5-10.1); CHLORIDE 107 mmol/L (98-107); CO2 29 mmol/L (21-32); CREATININE 0.7 mg/dL (0.55-1.02); GLUCOSE,RANDOM 95 mg/dL (74-106); SGOT/AST 20 U/L (15-37); SGPT/ALT 12 U/L (12-78); SODIUM 141 mmol/L (136-145); TOT PROT 6.8 g/dl (6.4-8.2)
--- NOTE | 2017-08-02 08:39 | PDOC ---
Attending Attestation - Resident Resident Name: Ren Quiñonez - ED Attending Attestation I have performed the following: I have examined & evaluated the patient, The case was reviewed & discussed with the resident, I agree w/resident's findings & plan, Exceptions are as noted - Medical Decision Making 08/02/17 08:37 47 yo F with h/o DUB h/o D&C 6 mo ago, here with vaginal bleeding, x 2 weeks. states 20 pads/ day. c/o lightheaded, sob and fatigued. on exam nt, normal card lungs. pelvic per resident. plan r/o anemia, d/w [facility]/ [facility] REGISTERED NURSE RN, if anemic will likely require transfusion for sxs and admit observation. <Mary Thakur - Last Filed: 08/02/17 08:36> - HPI HPI: 08/02/17 08:42 The patient is a 47 year old female, with a significant past medical history of cancerous colon polyp removal, anemia, and heavy vaginal bleeding , who presents to the emergency department complaining of vaginal bleeding over the past 2 weeks. She also reports generalized weakness, lightheadedness, shortness of breath and shortness of breath associated with her chief complaint. She reports that she has been going through 20 pads a day. She notes that her CBC yesterday showed an HGB of 5.3. She notes that she has been experiencing vaginal bleeding for multiple years, followed by HEDIS REGISTERED NURSE RN Dr. Sam. The patient denies chest pain, headache, fever, chills, nausea, vomiting, diarrhea and constipation. Denies dysuria, frequency, urgency. Allergies: Penicillin, Shellfish Past surgical history: DNC (Performed by Dr. Sam) PMD: Dr. Dent - Physicial Exam PE: 08/02/17 08:42 GENERAL: Awake, alert, and fully oriented, in no acute distress HEAD: No signs of trauma EYES: PERRLA, EOMI, sclera anicteric, conjunctiva clear ENT: Auricles normal inspection, nares patent. Moist mucosa NECK: Normal ROM, supple, no JVD, or masses LUNGS: Breath sounds equal, clear to auscultation bilaterally. No wheezes, and no crackles HEART: Regular rate and rhythm, normal S1 and S2, no murmurs, rubs or gallops ABDOMEN: Soft, nontender, normoactive bowel sounds. No guarding, no rebound. No masses EXTREMITIES: Normal range of motion, no edema. No clubbing or cyanosis. No cords, erythema, or tenderness NEUROLOGICAL: Alert and oriented x 3. Moves all extremities. Face is symmetric. SKIN: Warm, Dry, normal turgor, no rashes or lesions noted. PELVIC EXAM: Closed ox. Small amount of blood in the vagina vault. <Paulie Robb - Last Filed: 08/02/17 08:43>
--- NOTE | 2017-08-02 13:03 | HP ---
CHIEF COMPLAINT:Vaginal bleeding PCP:Russ HISTORY OF PRESENT ILLNESS: 47F with history of iron deficiency anemia, HTN, and previous heavy menses requiring transfusion, presents to the ED with a chief complaint of vaginal bleeding. Patient states since July 23, 2017 which is 10 days ago when she started her menstruation cycle, she started to have heavy menses. The menses never stopped and it has been very heavy. The patient states she has been going through a box of 28 pads every 2-3 days. She states she has also been getting dizzy, lightheaded, and tires much easier. She also endorses shortness of breath and feels like "I am looking for a chair so often now". She states she started having heavier menstruation since turning 40yo. She states she had one episode requiring hospitalization and transfusion in 2014 and then another episode 5 months ago in February of 2017. She is sexually active with her . She sees Dr. Bob at [address] [place] [address] for PRODUCT SALES REPRESENTATIVE care. She has had 2 pregnancies in her life and has 2 healthy children via . She Denies nausea vomiting fever, chills, chest pain, urinary symptoms, gastrointestinal symptoms, abdominal or pelvic pain. She denies history of PRODUCT SALES REPRESENTATIVE malignancies in her or her family. She did have a colonoscopy last year 05/[address] Johnson a cancerous polyp removed. ER course was notable for: (1)Labs (2)CXR transvaginal US (3)2 units PRBCs Recent Travel: PAST MEDICAL HISTORY: HTN JAYLAN abnormal uterine bleeding cancerous colon polyp PAST SURGICAL HISTORY: x2 D&C Social History: Smoking:denies Alcohol:denies Drugs: denies Family History:Mother and father both had Hypertension Allergies Penicillins Allergy (Verified 08/02/17 07:46) shellfish derived Allergy (Verified 08/02/17 07:46) HOME MEDICATIONS: Home Medications Home Medications Medication Instructions Recorded Amlodipine Besylate [Norvasc -] 5 mg PO DAILY 08/02/17 Docusate Sodium [Colace] 1 cap PO TID 08/02/17 Iron Ps Complex/B12/Folic Acid 1 each PO TID 08/02/17 [Iferex 150 Forte Capsule] REVIEW OF SYSTEMS CONSTITUTIONAL: Absent: fever, chills, diaphoresis, malaise, loss of appetite, weight change Present: generalized weakness HEENT: Absent: rhinorrhea, nasal congestion, throat pain, throat swelling, difficulty swallowing, mouth swelling, ear pain, eye pain, visual changes CARDIOVASCULAR: Absent: chest pain, syncope, palpitations, irregular heart rate, peripheral edema Present:lightheadedness, Dizziness RESPIRATORY: Absent: cough, orthopnea, wheezing, stridor, hemoptysis Present: shortness of breath, dyspnea with exertion GASTROINTESTINAL: Absent: abdominal pain, abdominal distension, nausea, vomiting, diarrhea, constipation, melena, hematochezia GENITOURINARY: Absent: dysuria, frequency, urgency, hesitancy, hematuria, flank pain, genital pain Present: heavy vaginal bleeding MUSCULOSKELETAL: Absent: myalgia, arthralgia, joint swelling, back pain, neck pain SKIN: Absent: rash, itching, pallor HEMATOLOGIC/IMMUNOLOGIC: Absent: easy bleeding, easy bruising, lymphadenopathy, frequent infections ENDOCRINE: Absent: unexplained weight gain, unexplained weight loss, heat intolerance, cold intolerance NEUROLOGIC: Absent: headache, focal weakness or paresthesias, dizziness, unsteady gait, seizure, mental status changes, bladder or bowel incontinence PSYCHIATRIC: Absent: anxiety, depression, suicidal or homicidal ideation, hallucinations. PHYSICAL EXAMINATION Vital Signs - 24 hr 08/02/17 08/02/17 08/02/17 07:17 10:30 10:55 Temperature 98.6 F 98.2 F 98 F Pulse Rate 84 Pulse Rate [ 71 70 Apical] Respiratory 20 18 16 Rate Blood Pressure 132/82 Blood Pressure 118/67 124/70 [Right Arm] O2 Sat by Pulse 98 100 100 Oximetry (%) 08/02/17 08/02/17 12:21 12:22 Temperature 98.1 F Pulse Rate Pulse Rate [ 73 Apical] Respiratory 18 Rate Blood Pressure Blood Pressure 132/77 [Right Arm] O2 Sat by Pulse 100 Oximetry (%) GENERAL: Awake, alert, and fully oriented, in no acute distress. HEAD: Normal with no signs of trauma. EYES: Pupils equal, round and reactive to light, extraocular movements intact, sclera anicteric, conjunctival pallor. pale mucous membranes EARS, NOSE, THROAT: Dry mucous membranes. NECK: Normal range of motion, supple without JVD LUNGS: Breath sounds equal, clear to auscultation bilaterally. No wheezes, and no crackles. No accessory muscle use. HEART: Regular rate and rhythm, soft 2/6 murmur heard at RUSB normal S1 and S2, rub or gallop. ABDOMEN: Soft, nontender, not distended, normoactive bowel sounds, no guarding, no rebound. MUSCULOSKELETAL: No CVA tenderness. Global muscle strength 5/5 UPPER EXTREMITIES: warm, well-perfused. No peripheral edema. LOWER EXTREMITIES: warm, well-perfused. No calf tenderness. Trace non-pitting peripheral edema. NEUROLOGICAL: Cranial nerves II-XII intact. Normal speech. Normal gait. Laboratory Results - last 24 hr 08/02/17 08/02/17 08/02/17 07:00 07:00 07:00 WBC 3.4 L RBC 3.33 L D Hgb 6.3 L* D Hct 20.8 L D MCV 62.5 L MCH 18.8 L MCHC 30.1 L RDW 21.0 H Plt Count 349 MPV 9.4 PT with INR 12.50 INR 1.11 Sodium 141 Potassium 4.0 Chloride 107 Carbon Dioxide 29 Anion Gap 5 L BUN 13 Creatinine 0.7 Creat Clearance w eGFR > 60 Random Glucose 95 Calcium 8.6 Total Bilirubin 0.4 D AST 20 ALT 12 Alkaline Phosphatase 87 Total Protein 6.8 Albumin 3.6 Blood Type Antibody Screen Crossmatch 08/02/17 07:00 WBC RBC Hgb Hct MCV MCH MCHC RDW Plt Count MPV PT with INR INR Sodium Potassium Chloride Carbon Dioxide Anion Gap BUN Creatinine Creat Clearance w eGFR Random Glucose Calcium Total Bilirubin AST ALT Alkaline Phosphatase Total Protein Albumin Blood Type B POSITIVE Antibody Screen Negative Crossmatch See Detail CXR: Clear Transvaginal US: myomatous uterus can not rule out endometrial polyp ASSESSMENT/PLAN: 47F with history of HTN, Iron deficiency anemia, and abnormal uterine bleeding, presents to the hospital with heavy menstruation and and symptomatic anemia requiring transfusion. Acute Blood loss [id number] to abnormal uterine bleeding: could be from fibroids vs perimenopausal changes vs less likely endometrial Ca Admit to inpatient medicine transfuse 2 units PRBCs Trend CBC -will repeat this evening PRODUCT SALES REPRESENTATIVE consult with Dr. Bob to see in consultation continue Iron wll give Ferrous sulfate TID with colace HTN: Hold Norvasc for now BP well controlled History of cancerous colon polyp: f/u with Dr. Johnson as outpatient FEN: NS @ 125ml/hr no electrolyte issues sodium controlled Diet PPx: SCDs/ambulate-no chemical PPx due to vaginal bleeding no GI PPx indicated at this time no PT consult warranted Case discussed with attending Dr. Paez Visit type - Emergency Visit Emergency Visit: Yes ED Registration Date: 08/02/17 Care time: The patient presented to the Emergency Department on the above date and was hospitalized for further evaluation of their emergent condition. - New Patient This patient is new to me today: Yes Date on this admission: 08/02/17 - Critical Care Critical Care patient: No Hospitalist Screening - Colonoscopy Questionnaire Colonoscopy Questionnaire: Colonoscopy Questionnaire - Patient: 50 - 75 years old and never had a screening colonoscopy: No History of colon or rectal polyps, or CA: Yes History of IBD, Crohn's disease or UC: No History of abdominal radiation therapy as a child: No - Relative: 1 with colon or rectal CA, or polyps at age 60 or younger: No Colon or rectal CA diagnosed at age 45 or younger: No Multiple relatives with colon or rectal CA: No (had removal with colonoscopy) - Outcome: Screening Result: Positive Screen
[2017-08-02] MEDS: SODIUM CHLORIDE 1,000 ML IV SCH (14:29)
--- NOTE | 2017-08-02 14:56 | PN ---
Teaching Attending Note Name of Resident: Isaak Figueroa ATTENDING PHYSICIAN STATEMENT I saw and evaluated the patient. I reviewed the resident's note and discussed the case with the resident. I agree with the resident's findings and plan as documented. CC: vaginal bleed HPI: 47 y/o lady with h/o HTN, seasonal asthma, iron def anemia, and heavy periods who presented with heavy vaginal bleed and SOB . she was found to have acute blood loss anemia. She has been having heavy, 7-day long, regular periods ( once a month). she usually has heavy periods in first few days then better. this time period started on 07/23. continued to be heavy till yesterday ( 28 pads q 2-3 days ) . she started to feel KAMARA. and some chills. has no fever . no dysuria. she had D&C in 08/31 and an endometrial polyp was removed ( benign ) , chronic endometritis was also found. In February, she was admitted with SOB and was found to have worsening of her anemia. was transfused. Has no family h/x of endometrial , ovarian, cervical or breast cancer but her great garnd mother ( ovarian ca ) . she is not aware of Thalassemia or sickle cell but her father brother used to get frequent blood transfusion Sexually active m has 2 children , no plan for more. OBJECTIVE: NAd , AAOX3. HEENT: pale MM, pale conjunctivae, EOMI, round equal pupils reactive to light . no JVD or LAP CV; RRR, 2/6 SM at RUSB Lungs: CTAB Ext: no edema or erythema Abd: soft, Nt, Nd , NL BS. neuro: EOMI, round equal pupils reactive to light. tongue at mid line , no facial droop. strength 5/5 in upper and lower extremities proximally and distally. reflexes 2+ knee jerk and 2+ biceps b/l ASSESSMENT AND PLAN: 47 y/o lady with h/o HTN, seasonal asthma, iron def anemia, and heavy periods who presented with heavy vaginal bleed and SOB . she was found to have acute blood loss anemia. 1- Acute blood loss anemia, due to heavy vaginal bleed. has chronic microcytic anemia, which is likely due to heavy menses. ferritin last admission was 2. other causes of microcytic anemia can be r/o as out pt - received one unit of RBC. will give a second one - repeat HB after transfusion. - Iron studies ( add to labs before transfusion) . if ferritin is very low then might benefit form IV iron. - TV US with fibroid and ? polyo vs another fibroid. METAL NUMERICAL TOOL PROGRAMMER consult for possible D&C. - goal HB > 7 or higher if cont to have sx - cont po iron for now - follow WBC /leukopenia - check PTT 2- h/o HTN' hold norvasc in setting of acute bleed. 3- h/o sthma , stabe 4- DVT prophylaxis : SCDs.
[2017-08-02] MEDS ORDERED: ACETAMINOPHEN 500 MG TABLET (FP) PO ONE (15:15)
[2017-08-02] MEDS ORDERED: IRON SUCROSE INJECTION 200 MG in SODIUM CHLORIDE 90 ML IVPB ONE (17:00)
[2017-08-02] MEDS: FERROUS SO4 325 MG TABLET (FP) PO SCH (20:00)
[2017-08-02 20:37] LABS: ADD RBC MORPHOLOGY YES; HEMATOCRIT 27.6 % (32.4-45.2); HEMOGLOBIN 8.6 GM/dL (10.7-15.3); MCH 21.9 pg (25.7-33.7); MCHC 31.1 g/dl (32.0-36.0); MEAN CELL VOLUME 70.2 fl (80-96); PLATELET COUNT 327 K/MM3 (134-434); RBC 3.92 M/mm3 (3.60-5.2); WHITE BLOOD COUNT 5.2 K/mm3 (4.0-10.0)
[2017-08-02] MEDS: DOCUSATE SODIUM 100 MG CAPSULE (FP) PO SCH (21:11)
[2017-08-02 21:35] LABS: ANISOCYTOSIS 1+
[2017-08-02] MEDS ORDERED: DOCUSATE SODIUM 100 MG CAPSULE (FP) PO SCH (22:00)
[2017-08-03] MEDS: SODIUM CHLORIDE 1,000 ML IV SCH (01:33)
[2017-08-03 04:48] LABS: HCG,QUALITATIVE URINE NEGATIVE
[2017-08-03 05:04] LABS: EPI CELLS RARE /HPF (FEW); URINE APPEARANCE CLEAR; URINE BILIRUBIN NEGATIVE (<2.0 mg/dL); URINE BLOOD 2+ (NEGATIVE); URINE COLOR YELLOW; URINE GLUCOSE (UA) NEGATIVE (NEGATIVE); URINE KETONE NEGATIVE (NEGATIVE); URINE LEUK ESTERASE NEGATIVE (NEGATIVE); URINE NITRITE NEGATIVE (NEGATIVE); URINE PROTEIN NEGATIVE (NEGATIVE); URINE UROBILINOGEN NORMAL mg/dL (0.2-1.0)
[2017-08-03 05:05] LABS: URINE MUCUS RARE
[2017-08-03] MEDS: FERROUS SO4 325 MG TABLET (FP) PO SCH ×2 (08:12→12:04)
[2017-08-03 08:46] LABS: ANION GAP 4 (8-16); BLOOD UREA NITROGEN 8 mg/dL (7-18); CALCIUM 8.2 mg/dL (8.5-10.1); CHLORIDE 109 mmol/L (98-107); CO2 28 mmol/L (21-32); CREATININE 0.6 mg/dL (0.55-1.02); GLUCOSE,RANDOM 89 mg/dL (74-106); POTASSIUM 4.3 mmol/L (3.5-5.1); SODIUM 141 mmol/L (136-145)
[2017-08-03 08:47] LABS: HEMATOCRIT 29.1 % (32.4-45.2); HEMOGLOBIN 8.8 GM/dL (10.7-15.3); MCH 21.3 pg (25.7-33.7); MCHC 30.4 g/dl (32.0-36.0); MEAN CELL VOLUME 70.2 fl (80-96); MEAN PLT VOLUME 9.4 fl (7.5-11.1); PLATELET COUNT 324 K/MM3 (134-434); RBC 4.14 M/mm3 (3.60-5.2); RDW 27.6 % (11.6-15.6)
[2017-08-03] MEDS: DOCUSATE SODIUM 100 MG CAPSULE (FP) PO SCH (09:19)
--- NOTE | 2017-08-03 11:12 | CONS ---
DATE OF CONSULTATION: 08/03/2017 PREOPERATIVE DIAGNOSES: Menorrhagia, fibroid uterus, and anemia, status post blood transfusion. The patient is a 47-year-old 2 para 2 with a history of chronic menorrhagia; history of endometrial polyp, status post hysteroscopy, D and C, and polypectomy in 2016, which was benign polyp; complaining of period being prolonged for 2 weeks each time she gets her period, now bleeding. She was admitted with severe anemia and was transfused 2 units of blood. She is not actively bleeding at this time and has no pain or dizziness or vaginal discharge. On transvaginal sonogram, showed that uterus measuring 9 cm. There is intramural fundal myoma, about 2.6 cm, and a submucous myoma versus a polyp of 3.1 cm. The endometrium was 1.5 cm in dimension. PHYSICAL EXAMINATION: Vital Signs: Stable. General: Patient alert and ambulating. Abdomen: Soft, nontender. Pelvic: External genitalia normal. Vagina was normal. No blood. Cervix clean. No gross lesion. Uterus appeared to be slightly prominent. Adnexa, no masses were palpable. IMPRESSION: menorrhagia, anemia, possible submucous myoma. Advised a trial of progesterone for 3 months. If the menorrhagia does not improve, may need hysteroscopy, D and C, and possible resection of submucous myoma. Instruction was given to the patient to take Motrin for cramps and also take iron and vitamin and will be followed up in the clinic in 2 weeks. Instruction was given to the patient, if she has heavy bleeding, dizziness, to return. COLE OLMSTEAD M.D. [id number]
[2017-08-03 12:48] VITALS: BP 137/76; PULSE 69; TEMP 98.1
--- NOTE | 2017-08-03 14:23 | DS ---
Physical Examination Vital Signs: Vital Signs Temperature 98.1 F 08/03/17 07:45 Pulse Rate 69 08/03/17 07:45 Respiratory Rate 18 08/03/17 07:45 Blood Pressure 137/76 08/03/17 07:45 O2 Sat by Pulse Oximetry (%) 99 08/02/17 21:00 Findings/Remarks: no abd pain, vaginal bleed almost stopped. no dizziness , feels much better and back to base line PE : NAd , AAOX3. MMM CV; RRR, 2/6 SM at RUSB Lungs: CTAB Ext: no edema or erythema Abd: soft, Nt, Nd , NL BS. Labs: CBC, BMP 08/03/17 07:30 08/03/17 07:30 Discharge Summary Reason For Visit: SEVERE ANEMIA,MENORRHAGIA Current Active Problems Menorrhagia (Acute) Severe anemia (Acute) Hospital Course: 47 y/o lady with h/o HTN, seasonal asthma, iron def anemia, and heavy periods who presented with heavy vaginal bleed and SOB . she was found to have acute blood loss anemia. at presentation [place] Hb was 6.5 with low normal BP and paler . she received 2 units of blood and hb increased to 8.8 today. TV US showed mymatous uterus with a question of a polyp vs subendothelial lyomyoma. she was seen by GPS NAVIGATION INSTALLER and was prescribed progestrone to decrease bleeding. she is to follow with GPS NAVIGATION INSTALLER. during this hospital stay , she was given one dose of IV iron as her ferritin was 2 . she is to follow with heme to get evaluated further for complete dose of iron transfusion. TIBC, transferrin sat are still pending at this time she is to resume her iron and rest of her meds at [facility] . Dispo : [facility] home conditio improved time spent 30 min f/u PCP and GPS NAVIGATION INSTALLER and HEME blood work : cbc in 1 week to be faxed to PCP pending labs : TIBC, transferrin sat Condition: Improved - Instructions Diet, Activity, Other Instructions: - you were treated for severe anemia form heavy vaginal bleed - please see Dr. Ortiz in office in 2-3 week - please report any weakness, dizziness, light headedness, or chest painor shortness of breath to your doctor. - if bleed returns heavy please come back - please follow with a wrapper layer and examiner soft work ( covered by your insurance ) , to evaluate for IV iron infusion as your iron stores are very low ( ferritin of 2 ) . also you need evaluation for other causes of anemia - blood work in 4-5 days to check your blood count and send it to your primady doctor . Referrals: Sally Christine MD [Primary Care Provider] - 1 Week Bryce Ortiz MD [Staff Physician] - 2 Weeks Disposition: HOME - Home Medications Comprehensive Discharge Medication List: Ambulatory Orders Amlodipine Besylate [Norvasc -] 5 mg PO DAILY 08/02/17 Docusate Sodium [Colace] 1 cap PO TID 08/02/17 Iron Ps Complex/B12/Folic Acid [Iferex 150 Forte Capsule] 1 each PO TID Medroxyprogesterone Acetate 5 mg PO AM #90 tablet MDD 1 08/03/17 Miscellaneous Medical Supply [Outpatient Order] 1 each ASDIR #1 misc This patient is new to me today: No Emergency Visit: Yes ED Registration Date: 08/02/17 Care time: The patient presented to the Emergency Department on the above date and was hospitalized for further evaluation of their emergent condition. Critical Care patient: No - Discharge Referral Referred to [facility] No
[2017-08-04 06:06] LABS: SERUM IRON SATURATION 6 % (15-55); TOTAL IRON BINDING CAPACITY 393 ug/dL (250-450); UIBC 371 ug/dL (131-425)
--- NOTE | 2017-08-05 00:37 | EKG ---
Test Reason : Blood Pressure : / mmHG Vent. Rate : 083 BPM Atrial Rate : 083 BPM P-R Int : 148 ms QRS Dur : 082 ms QT Int : 370 ms P-R-T Axes : 064 019 025 degrees QTc Int : 434 ms NORMAL SINUS RHYTHM POSSIBLE LEFT ATRIAL ENLARGEMENT BORDERLINE ECG WHEN COMPARED WITH ECG OF 18-FEB-2017 14:56, NO SIGNIFICANT CHANGE WAS FOUND Confirmed by BRENDAN WALDEN MD ([id number]) on 08/05/2017 12:36:40 AM Referred By: Confirmed By:BRENDAN WALDEN MD
[2017-08-05 06:06] LABS: TRANSFERRIN 294 mg/dL (200-370)
== END 2017-08-03 14:45 | disposition home or self-care (01) | DRG 760 ==
LOC: JER 06:39 → JERBED 11:11 → J8W 13:36
PROVIDERS: ADMIT Internal Medicine; ATTEND Internal Medicine
DX: N92.0 Excessive and frequent menstruation with regular cycle (principal); D62 Acute posthemorrhagic anemia; I10 Essential (primary) hypertension; Z85.038 Personal history of other malignant neoplasm of large intestine; Z80.41 Family history of malignant neoplasm of ovary; J45.909 Unspecified asthma, uncomplicated
CPT/HCPCS: 36415; 36430; 71045-TC-FY; 76830-TC; 80048; 80053; 81003; 81015; 82728; 83540; 83550; 84466; 84702; 84703; 85027; 85610; 86850; 86900; 86901; 86922; 93005; 93010; 99285-25; J1756; J7030; P9038; P9058

== ENCOUNTER 2017-09-23 08:20 | Day surgery (SDC) | payer OTHER ==
[2017-09-22 13:02] VITALS: BMI 33.5
[2017-09-23] MEDS ORDERED: DEXAMETHASONE SOD PHOSPHATE 4 MG/1 ML VIAL ONE (10:31)
[2017-09-23] MEDS ORDERED: PROPOFOL 20 ML ONE ×3 (10:31→11:54)
[2017-09-23] MEDS ORDERED: KETOROLAC TROMETHAMINE 30 MG/1 ML VIAL ONE (10:31)
[2017-09-23] MEDS ORDERED: MIDAZOLAM HCL 2 MG/2 ML SINGLE DOSE VIAL ONE (10:31)
[2017-09-23] MEDS ORDERED: VASOPRESSIN 20 UNITS/ML VIAL IV ONE (11:09)
--- NOTE | 2017-09-23 12:22 | OP ---
Operative Note - Note: Operative Date: 09/23/17 (job# [id number]) Pre-Operative Diagnosis: submucous fibroid; menorrhagia Operation: D&C resectoscope with symphion Findings: large fibroid approximate 3-4 cm at entrance; large polyp approximately 3cm; another myoma posterior wall approximately 3cm Post-Operative Diagnosis: Other (submucous myoma; endometrial polyp) Surgeon: Ivonne Solano Anesthesia: MAC Specimens Removed: endometrial shavings Estimated Blood Loss (mls): 20 Drains, Volume Out (mls): 1,500 (fluid deficit) Fluid Volume Replaced (mls): 200 Operative Report Dictated: Yes
[2017-09-23] MEDS ORDERED: ACETAMINOPHEN 325 MG TABLET (FP) PO PRN (12:29)
[2017-09-23] MEDS ORDERED: IBUPROFEN 400 MG TABLET (FP) PO PRN (12:29)
[2017-09-23] MEDS ORDERED: ONDANSETRON 4 MG/2 ML VIAL IVPUSH PRN (12:43)
[2017-09-23] MEDS ORDERED: oxyCODONE HCL 5 MG TABLET PO PRN (12:43)
[2017-09-23] MEDS ORDERED: LACTATED RINGERS SOLUTION 1,000 ML IV SCH (12:45)
--- NOTE | 2017-09-23 13:08 | OP ---
DATE OF OPERATION: 09/23/2017 PREOPERATIVE DIAGNOSIS: Submucous fibroid, menorrhagia. POSTOPERATIVE DIAGNOSIS: Submucous fibroid, menorrhagia, endometrial polyp. PROCEDURE: Dilation and curettage resectoscope with Symphion. FINDINGS: Large fibroid approximately 3-4 cm at the lower uterine segment. Upon entering the uterus, a large endometrial polyp approximately 3 cm noted towards the right side of the uterine wall and then another myoma posterior wall approximately 3 cm. SURGEON: Ivonne Solano M.D. ANESTHESIA: MAC. SPECIMENS: Endometrial shavings. ESTIMATED BLOOD LOSS: 20 INTRAVENOUS FLUIDS: 200 mL FLUID DEFICIT: Normal saline 1500. After informed consent was obtained, the patient was taken to the operating room where anesthesia was induced and found to be adequate. The patient was placed in dorsal lithotomy position and prepped and draped in the usual fashion. A weighted speculum was placed in the posterior fornix and a speculum was placed and a Mcfadden retractor was placed anteriorly and the anterior lip of the cervix was grasped with a single-tooth tenaculum. The uterus was sounded to approximately 8 cm and then the cervix was gently dilated to 17 mm via serial insertion of Acevedo dilators. The Mcfadden dilators were removed and then the resectoscope distention device was gently advanced to the uterine fundus and a large fibroid was noted upon entry, as well as a large polyp filling the cavity and then a smaller fibroid in the posterior wall. Using the cut function, the first large 4 cm fibroid was removed and then access was gained to the polyp, which was removed in its entirety and then the first polyp was shaved out completely. Due to a fluid deficit of 1500 mL, the procedure was then stopped and the last fibroid remained. Patient tolerated the procedure well. No bleeding was noted. The instruments were removed. Sponge count correct x2. Santa MCARTHUR/[id number]
[2017-09-23 13:27] LABS: ANION GAP 6 (8-16); BLOOD UREA NITROGEN 9 mg/dL (7-18); CALCIUM 7.7 mg/dL (8.5-10.1); CHLORIDE 109 mmol/L (98-107); CO2 27 mmol/L (21-32); CREATININE 0.6 mg/dL (0.55-1.02); GLUCOSE,RANDOM 92 mg/dL (74-106); POTASSIUM 4.4 mmol/L (3.5-5.1); SODIUM 142 mmol/L (136-145)
[2017-09-23 16:28] VITALS: BP 102/63; PULSE 64; TEMP 97.8
--- NOTE | 2017-09-24 17:03 | PATH ---
Surgical Pathology Report Patient Name: NYDIA NÚÑEZ [facility]. Rec. #: [id number] /Age/Gender: 1970 (Age: 47) / F Account: [id number] Location: [facility] SURGICAL Taken: 09/23/2017 Received: 09/23/2017 Reported: 09/24/2017 Physicians: Ivonne Solano M.D. Specimen(s) Received ENDOMETRIAL SHAVINGS Clinical History Submucosal fibroids Final Diagnosis ENDOMETRIAL SHAVINGS, DILATION AND CURETTAGE: FRAGMENTS OF ENDOMETRIAL POLYP, LEIOMYOMA, AND BENIGN CERVICAL TISSUE. Electronically Signed Ailyn San M.D. Gross Description Received in formalin, labeled "endometrial shaving" are 4 avalos, irregular portions of soft tissue measuring 1 x 1 x 0.2 cm. in aggregate. Also identified in a plastic bag is 4 x 4 x 1 cm in aggregate white- avalos fragmented soft tissue. The specimen is submitted in toto in 4 cassettes: 1. Entire soft tissue in the container 2 to 4. Merchant Tailor soft tissue in bag. ZURDO/09/23/2017 rashawn/09/23/2017
== END 2017-09-23 16:30 | disposition home or self-care (01) ==
LOC: JASU-SURG 08:20
PROVIDERS: ATTEND Obstetrics & Gynecology
PROC: 0UB98ZX Excision of Uterus, Via Natural or Artificial Opening Endoscopic, Diagnostic (ICD-10-PCS; 2017-09-23)
PROC: 0UDB7ZX Extraction of Endometrium, Via Natural or Artificial Opening, Diagnostic (ICD-10-PCS; 2017-09-23)
PROC: 0UB98ZZ Excision of Uterus, Via Natural or Artificial Opening Endoscopic (ICD-10-PCS; principal; 2017-09-23 10:30)
DX: N84.0 Polyp of corpus uteri (principal); D25.0 Submucous leiomyoma of uterus; N92.0 Excessive and frequent menstruation with regular cycle
CPT/HCPCS: 36415; 80048; 84703; 86850; 86900; 86901; 88305-TC

== ENCOUNTER 2018-03-29 07:29 | Inpatient (IN) | payer OTHER ==
--- NOTE | 2018-03-29 08:28 | PDOC ---
History of Present Illness - General Chief Complaint: Vaginal Bleeding Stated Complaint: HEAVY MENSTRUAL BLEEDING Time Seen by Provider: 03/29/18 08:28 History Source: Patient Exam Limitations: No Limitations - History of Present Illness Initial Comments: 03/29/18 08:59 47 year old female with PMH uterine fibroids, symptomatic anemia requiring blood transfusions, uterine polyp, HTN, asthma, cancerous colon polyp presented to ED for vaginal bleedng since yesterday associated with lightheadedness, headache. Pt admitted to soaking through 27 pads since yesterday, positive clots , suprapubic cramping, nausea, shortness of breath. Pt denied fever, chills, vomiting, diarrhea, chest pain, syncope. Pt had uterine fibroids removed 09/2017 , since then has not had episodes of vaginal bleeding until yesterday. OBGYN: [facility] Allergies: PCN PCP: Quinn Past History - Past Medical History Allergies/Adverse Reactions: Allergies Allergy/AdvReac Type Severity Reaction Status Date / Time Penicillins Allergy Verified 03/29/18 07:44 shellfish derived Allergy Verified 03/29/18 07:44 Home Medications: Ambulatory Orders Amlodipine Besylate [Norvasc -] 5 mg PO DAILY 08/02/17 Anemia: Yes Asthma: No Cancer: No Cardiac Disorders: No CVA: No COPD: No CHF: No DVT: No Dementia: No Diabetes: No GI Disorders: No Disorders: No HTN: Yes Hypercholesterolemia: No Liver Disease: No Seizures: No Thyroid Disease: No - Surgical History Abdominal Surgery: No Appendectomy: No Cardiac Surgery: No Cholecystectomy: No Lung Surgery: No Neurologic Surgery: No Orthopedic Surgery: No - Suicide/Smoking/Psychosocial Hx Smoking History: Never smoked Have you smoked in the past 12 months: No Hx Alcohol Use: No Drug/Substance Use Hx: No Substance Use Type: None Hx Substance Use Treatment: No Review of Systems - Review of Systems Able to Perform ROS?: Yes Comments:: 03/29/18 09:01 General: admitted to generalized weakness. denied fever, chills, night sweats. HEENT: denied sore throat, rhinorrhea, ear pain. Heart: admitted to lightheadedness. denied chest pain, palpitations, syncope, lower extremity swelling, diaphoresis. Respiratory: admitted to shortness of breath. denied cough, sputum production, hemoptysis. Abdomen: admitted to abdominal pain, nausea. denied vomiting, diarrhea, constipation, blood in stool. : admitted to vaginal bleeding, admitted to blood clots. denied dysuria, increased urinary frequency, hematuria, urinary incontinence, flank pain. Back: denied back pain. Musculoskeletal: denied joint pain, muscle pain, joint swelling. Neurological: admitted to headache. denied dizziness, numbness, tingling, weakness. Skin: denied rash, laceration, abrasion. *Physical Exam - Vital Signs Last Vital Signs Temp Pulse Resp BP Pulse Ox 98.3 F 98 H 18 101/58 L 100 03/29/18 07:41 03/29/18 07:41 03/29/18 07:41 03/29/18 07:41 03/29/18 07:41 - Physical Exam Comments: 03/29/18 09:04 Constitutional: Well-nourished, Well-developed, appearing stated age. pale. HEENT: head is normocephalic, atraumatic. EOMI. PERRLA. Neck: supple. Full ROM. Heart: regular rhythm. no murmurs, rubs or gallops. Lungs: clear to auscultation bilaterally. no crackles, rhonchi or wheezing. no stridor. Abdomen: soft, flat. mild tenderness to palpation of suprapubic area. normal bowel sounds. no rebound, guarding, masses. Pelvic: normal external genitalia. large clot externally. pooling of blood in vaginal canal. cervix unable to be visualized. no CMT. no adnexal tenderness. Extremities: Peripheral pulses intact. No lower extremity edema. Neurological: CN 2-12 grossly intact. Moves all four extremities. Psych: awake, alert, oriented x3. Follows commands. Answers questions appropriately. Moderate Sedation - Procedure Monitoring Vital Signs: Procedure Monitoring Vital Signs Temperature 98.3 F 03/29/18 07:41 Pulse Rate 98 H 03/29/18 07:41 Respiratory Rate 18 03/29/18 07:41 Blood Pressure 101/58 L 03/29/18 07:41 O2 Sat by Pulse Oximetry (%) 100 03/29/18 07:41 ED Treatment Course - LABORATORY CBC & Chemistry Diagram: 03/29/18 21:36 03/29/18 08:40 Medical Decision Making - Medical Decision Making 03/29/18 09:05 47 year old female with above PMH presented to ED for vaginal bleeding since last night associated with blood clots, lightheadedness, shortness of breath, generalized weakness, headache. Initial Vital Signs Temp Pulse Resp BP Pulse Ox 98.3 F 98 H 18 101/58 L 100 03/29/18 07:41 03/29/18 07:41 03/29/18 07:41 03/29/18 07:41 03/29/18 07:41 Afebrile. Borderline tachycardia. No tachypnea. Mild hypotension. No hypoxia on room air. Labs ordered: CBC, BMP, serum test, T/S, coags Medications ordered: Toradol Imaging ordered: none, TVUS deferred secondary to clinical condition EKG performed at 1055: rate 85, regular rhythm, normal axis, normal intervals, flat T in V5/V6/aVF. EKG comparison 08/02/17: rate 83, regular rhythm, normal axis, normal intervals , no acute ST changes. 03/29/18 09:14 CBC WBC 5.7 K/mm3 (4.0-10.0) 03/29/18 08:40 RBC 2.87 M/mm3 (3.60-5.2) L 03/29/18 08:40 Hgb 5.1 GM/dL (10.7-15.3) L* 03/29/18 08:40 Hct 17.3 % (32.4-45.2) L D 03/29/18 08:40 MCV 60.2 fl (80-96) L 03/29/18 08:40 MCH 17.9 pg (25.7-33.7) L D 03/29/18 08:40 MCHC 29.7 g/dl (32.0-36.0) L 03/29/18 08:40 RDW 19.9 % (11.6-15.6) H 03/29/18 08:40 Plt Count 341 K/MM3 (134-434) 03/29/18 08:40 MPV 8.8 fl (7.5-11.1) 03/29/18 08:40 Absolute Neuts (auto) 4.2 K/mm3 (1.5-8.0) 03/29/18 08:40 Neutrophils % 73.6 % (42.8-82.8) D 03/29/18 08:40 Lymphocytes % 19.9 % (8-40) D 03/29/18 08:40 Monocytes % 5.3 % (3.8-10.2) 03/29/18 08:40 Eosinophils % 0.4 % (0-4.5) 03/29/18 08:40 Basophils % 0.8 % (0-2.0) 03/29/18 08:40 Nucleated RBC % 0 % (0-0) 03/29/18 08:40 Microcytic anemia - 2 units packed RBC ordered. - Lab called to prioritize T/S CMP Sodium 139 mmol/L (136-145) 03/29/18 08:40 Potassium 4.0 mmol/L (3.5-5.1) 03/29/18 08:40 Chloride 107 mmol/L (98-107) 03/29/18 08:40 Carbon Dioxide 26 mmol/L (21-32) 03/29/18 08:40 Anion Gap 6 MMOL/L (8-16) L 03/29/18 08:40 BUN 13 mg/dL (7-18) 03/29/18 08:40 Creatinine 0.7 mg/dL (0.55-1.3) 03/29/18 08:40 Creat Clearance w eGFR > 60 (>60) 03/29/18 08:40 Random Glucose 114 mg/dL (74-106) H 03/29/18 08:40 Calcium 8.4 mg/dL (8.5-10.1) L 03/29/18 08:40 Normal electrolytes. No KWESI. Serum testing negative. Pt admitted for symptomatic anemia secondary to vaginal bleeding, likely from uterine fibroids, requiring blood transfusion. TVUS deferred at this time secondary to patient's clinical condition, can be done after blood transfusion when symptomatic anemia improves. Pt's OBGYN office called, advised admission under medicine team with OBGYN consult. Microblog sent. 03/29/18 10:40 CXR report: negative for acute pathology. Case discussed with Dr. Haque, who will admit the patient. Pending admission. 03/29/18 11:30 Pt receiving blood products, reported improvement of SOB/lightheadedness. *DC/Admit/Observation/Transfer Diagnosis at time of Disposition: Symptomatic anemia, Encounter for blood transfusion, Uterine fibroid - Discharge Dispostion Condition at time of disposition: Stable Decision to Admit order: Yes - Referrals - Patient Instructions - Post Discharge Activity
--- NOTE | 2018-03-29 08:39 | PDOC ---
Attending Attestation - HPI HPI: 03/29/18 10:14 The patient is a 47 year old female, with a significant past medical history of symptomatic anemia (requiring blood transfusions), uterine polyp, cancerous colon polyp, HTN, and asthma who presents to the emergency department with, 2 days of vaginal bleeding. Patient notes she has soaked through 27 pads since yesterday and describes her vaginal bleeding as containing clots, cramping, and associated nausea, shortness of breath, headache, and lightheadedness. She denies recent dysuria, frequency, urgency or hematuria. Allergies: NKA Past surgical history: None reported. Social history: Nonsmoker. Denies EtOH use and recreational drug use. Primary Care Physician: Dr. Christine MUSHROOM CUTTER: Dr. Solano - Medical Decision Making 03/29/18 09:20 Call placed to patient's MUSHROOM CUTTER, Dr. Solano, case discussed with MUSHROOM CUTTER internet application developer Dr. Klein. <JaneyRigo - Last Filed: 03/29/18 10:14> - Resident Resident Name: Perlita Morrison - ED Attending Attestation I have performed the following: I have examined & evaluated the patient, The case was reviewed & discussed with the resident, I agree w/resident's findings & plan, Exceptions are as noted - Physicial Exam PE: GENERAL: Awake, alert, and fully oriented. Tearful at times during interview. Appears pale. HEAD: No signs of trauma EYES: PERRLA, EOMI, sclera anicteric, conjunctiva clear ENT: Auricles normal inspection, hearing grossly normal, nares patent, oropharynx clear without exudates. Dry mucosa NECK: Normal ROM, supple, no lymphadenopathy, JVD, or masses LUNGS: Breath sounds equal, clear to auscultation bilaterally. No wheezes, and no crackles HEART: Regular rate and rhythm, normal S1 and S2, no murmurs, rubs or gallops ABDOMEN: Soft, +suprapubic tenderness, normoactive bowel sounds. No guarding, no rebound. No masses EXTREMITIES: Normal range of motion, no edema. No clubbing or cyanosis. No cords, erythema, or tenderness NEUROLOGICAL: Cranial nerves II through XII grossly intact. Normal speech, normal gait. Motor and sensation intact SKIN: Warm, Dry, normal turgor, no rashes or lesions noted. : No external lesions. +Clots in vault. - Medical Decision Making D/w Dr. Klein. Will call hospitalist for admission. He will see as a performance improvement consultant, will consider estrogen therapy. <Sarah Powell - Last Filed: 03/29/18 13:35> Attestations - Attestations 03/29/18 09:31 Documentation prepared by Rigo Toth, acting as medical collections for Sarah Powell MD. <Rigo Toth - Last Filed: 03/29/18 10:14>
[2018-03-29 08:54] LABS: BASO % 0.8 % (0-2.0); EOS % 0.4 % (0-4.5); HEMATOCRIT 17.3 % (32.4-45.2); LYMPH % 19.9 % (8-40); MCH 17.9 pg (25.7-33.7); MCHC 29.7 g/dl (32.0-36.0); MEAN CELL VOLUME 60.2 fl (80-96); MEAN PLT VOLUME 8.8 fl (7.5-11.1); MONO % 5.3 % (3.8-10.2); NEUT % 73.6 % (42.8-82.8); PLATELET COUNT 341 K/MM3 (134-434); RBC 2.87 M/mm3 (3.60-5.2); RDW 19.9 % (11.6-15.6); WHITE BLOOD COUNT 5.7 K/mm3 (4.0-10.0)
[2018-03-29 08:56] LABS: HEMOGLOBIN 5.1 GM/dL (10.7-15.3)
[2018-03-29 09:08] LABS: INR 1.14 (0.83-1.09); PROTHROMBIN TIME (PATIENT) 13.5 SEC (9.7-13.0)
[2018-03-29 09:10] LABS: ACTIVATED PTT 20.4 SECONDS (25.2-36.5)
[2018-03-29 09:13] LABS: ANION GAP 6 MMOL/L (8-16); BLOOD UREA NITROGEN 13 mg/dL (7-18); CALCIUM 8.4 mg/dL (8.5-10.1); CHLORIDE 107 mmol/L (98-107); CO2 26 mmol/L (21-32); CREATININE 0.7 mg/dL (0.55-1.3); GLUCOSE,RANDOM 114 mg/dL (74-106); SODIUM 139 mmol/L (136-145)
[2018-03-29] MEDS ORDERED: KETOROLAC TROMETHAMINE 30 MG/1 ML VIAL IVPUSH ONE (09:15)
[2018-03-29] MEDS ORDERED: KETOROLAC TROMETHAMINE 30 MG/1 ML VIAL ONE (09:49)
[2018-03-29 10:01] LABS: ANISOCYTOSIS 2+; MACROCYTOSIS 0; OVALOCYTE 1+; PLATELET ESTIMATE NORMAL
[2018-03-29] MEDS ORDERED: ESTROGENS,CONJUGATED 25 MG VIAL IVPB ONE (10:25)
[2018-03-29] MEDS ORDERED: ACETAMINOPHEN 325 MG TABLET (FP) PO PRN (10:58)
[2018-03-29] MEDS ORDERED: WATER IVPB ONE (11:00)
[2018-03-29] MEDS ORDERED: ESTROGENS CONJUGATED IVPB ONE (11:00)
[2018-03-29] MEDS ORDERED: DEXTROSE 5% IVPB ONE (11:00)
--- NOTE | 2018-03-29 11:22 | HP ---
Admitting History and Physical - Primary Care Physician PCP: Sally Christine - Admission Chief Complaint: I'm bleeding History of Present Illness: Ms León is a very pleasant 47 year old female with history of fibroids who presents with uncontrolled vaginal bleeding. She says she had this episode once in the past and underwent fibroidectomy, but was told one was left. She has been in her normal state of health until this past Friday when she began her menstrual cycle. She had heavy bleeding and was passing clots. The bleeding was excessive, she says she used 27 pads yesterday. She had lightheadedness with this but did not pass out. She notes pallor. She has shortness of breath on exertion. Because of this she comes in for further evaluation. She denies fevers , chills, vertigo, chest pain or pressure, nausea, vomiting, abdominal pain, diarrhea, constipation, rectal bleeding, difficulty or pain on urination, or swelling. History Source: Patient Limitations to Obtaining History: No Limitations - Past Medical History Cardiovascular: Yes: HTN Gastrointestinal: Yes: GERD ...LMP: 03/25/18 ...: No Heme/Onc: Yes: Anemia - Past Surgical History Past Surgical History: Yes: , Upper Endoscopy - Smoking History Smoking history: Never smoked Have you smoked in the past 12 months: No - Alcohol/Substance Use Hx Alcohol Use: No History of Substance Use: reports: None - Social History ADL: Independent History of Recent Travel: No Home Medications - Allergies Allergies/Adverse Reactions: Allergies Allergy/AdvReac Type Severity Reaction Status Date / Time Penicillins Allergy Verified 03/29/18 07:44 shellfish derived Allergy Verified 03/29/18 07:44 - Home Medications Home Medications: Ambulatory Orders Amlodipine Besylate [Norvasc -] 5 mg PO DAILY 08/02/17 Family Disease History - Family Disease History Family Disease History: Heart Disease: Father (HTN), Mother (HTN) Review of Systems Findings/Remarks: Full review of systems obtained, as per HPI and otherwise negative Physical Examination Vital Signs: Vital Signs Temperature 36.8 C 03/29/18 11:20 Pulse Rate 87 03/29/18 11:20 Respiratory Rate 18 03/29/18 11:20 Blood Pressure 102/46 L 03/29/18 11:20 O2 Sat by Pulse Oximetry (%) 100 03/29/18 11:20 Constitutional: Yes: No Distress, Calm, Obese, Pallor Eyes: Yes: Conjunctiva Clear, EOM Intact, PERRL HENT: Yes: Atraumatic, Normocephalic Cardiovascular: Yes: Regular Rate and Rhythm. No: Gallop, Murmur, Rub Respiratory: Yes: Regular, CTA Bilaterally. No: Rales, Rhonchi, Wheezes Gastrointestinal: Yes: Normal Bowel Sounds, Soft. No: Distention, Tenderness Extremities: Yes: WNL Edema: No Labs: CBC, BMP 03/29/18 08:40 03/29/18 08:40 Imaging - Results Chest X-ray: Report Reviewed, Image Reviewed Problem List - Problems (1) Symptomatic anemia Assessment/Plan: -acute blood loss anemia secondary to menorrhagia -admit to med/surg -transfuse 2 units -monitor Code(s): D64.9 - ANEMIA, UNSPECIFIED (2) Uterine fibroid Assessment/Plan: -gynecology consulted -? if needs fibroidectomy or hysterectomy Code(s): D25.9 - LEIOMYOMA OF UTERUS, UNSPECIFIED (3) Menorrhagia Assessment/Plan: -given IV estrogen to help control bleeding Code(s): N92.0 - EXCESSIVE AND FREQUENT MENSTRUATION WITH REGULAR CYCLE Qualifiers:
[2018-03-29 12:58] VITALS: BMI 35.3
[2018-03-29 21:53] LABS: HEMATOCRIT 19.5 % (32.4-45.2); MCH 21.4 pg (25.7-33.7); MCHC 31.9 g/dl (32.0-36.0); MEAN PLT VOLUME 9.1 fl (7.5-11.1); PLATELET COUNT 274 K/MM3 (134-434); RBC 2.91 M/mm3 (3.60-5.2); RDW 26.6 % (11.6-15.6); WHITE BLOOD COUNT 8.1 K/mm3 (4.0-10.0)
[2018-03-29 21:57] LABS: HEMOGLOBIN 6.2 GM/dL (10.7-15.3)
--- NOTE | 2018-03-29 22:27 | EKG ---
Test Reason : Blood Pressure : / mmHG Vent. Rate : 085 BPM Atrial Rate : 085 BPM P-R Int : 138 ms QRS Dur : 076 ms QT Int : 376 ms P-R-T Axes : 049 020 026 degrees QTc Int : 447 ms NORMAL SINUS RHYTHM NORMAL ECG WHEN COMPARED WITH ECG OF 02-AUG-2017 07:20, NONSPECIFIC T WAVE ABNORMALITY NOW EVIDENT IN LATERAL LEADS Confirmed by FILEMON CALLEJAS MD ([id number]) on 03/29/2018 10:27:09 PM Referred By: Confirmed By:FILEMON CALLEJAS MD
[2018-03-30 07:19] LABS: BASO % 0.5 % (0-2.0); EOS % 0.3 % (0-4.5); HEMATOCRIT 24.1 % (32.4-45.2); HEMOGLOBIN 7.3 GM/dL (10.7-15.3); LYMPH % 23.3 % (8-40); MCH 21.2 pg (25.7-33.7); MCHC 30.2 g/dl (32.0-36.0); MEAN PLT VOLUME 9.2 fl (7.5-11.1); MONO % 5.8 % (3.8-10.2); NEUT % 70.1 % (42.8-82.8); PLATELET COUNT 249 K/MM3 (134-434); RBC 3.44 M/mm3 (3.60-5.2); RDW 26.2 % (11.6-15.6); WHITE BLOOD COUNT 9.1 K/mm3 (4.0-10.0)
[2018-03-30 07:56] LABS: ANION GAP 7 MMOL/L (8-16); BLOOD UREA NITROGEN 15 mg/dL (7-18); CALCIUM 7.9 mg/dL (8.5-10.1); CHLORIDE 109 mmol/L (98-107); CO2 25 mmol/L (21-32); CREATININE 0.7 mg/dL (0.55-1.3); GLUCOSE,RANDOM 87 mg/dL (74-106); MAGNESIUM 2.3 mg/dL (1.8-2.4); PHOSPHOROUS 3.1 mg/dL (2.5-4.9); POTASSIUM 4.1 mmol/L (3.5-5.1); SODIUM 141 mmol/L (136-145)
[2018-03-30] MEDS ORDERED: FLU VACCINE QUAD 60 MCG/0.5 ML (MDV 18-19) IM ONE (15:00)
--- NOTE | 2018-03-30 16:33 | PN ---
Progress Note, Physician Chief Complaint: Ms León says the bleeding has resolved and she is feeling better. She denies cp, sob, n/v or any other concerns. Mainly frustrated by repeated bleeding. - Current Medication List Current Medications: Active Medications Acetaminophen (Tylenol -) 650 mg PO Q4H PRN PRN Reason: FEVER Last Admin: 03/29/18 21:39 Dose: 650 mg - Objective Vital Signs: Vital Signs Temperature 37.0 C 03/30/18 09:00 Pulse Rate 80 03/30/18 09:00 Respiratory Rate 20 03/30/18 09:00 Blood Pressure 134/90 03/30/18 09:00 O2 Sat by Pulse Oximetry (%) 100 03/30/18 02:24 Constitutional: Yes: No Distress, Calm, Obese Cardiovascular: Yes: Regular Rate and Rhythm. No: Gallop, Murmur, Rub Respiratory: Yes: Regular, CTA Bilaterally. No: Rales, Rhonchi, Wheezes Gastrointestinal: Yes: Normal Bowel Sounds, Soft. No: Distention, Tenderness Extremities: Yes: WNL Edema: No Labs: CBC, BMP 03/30/18 06:00 03/30/18 06:00 INR, PTT INR 1.14 (0.83-1.09) H 03/29/18 08:40 Problem List - Problems (1) Symptomatic anemia Code(s): D64.9 - ANEMIA, UNSPECIFIED (2) Uterine fibroid Code(s): D25.9 - LEIOMYOMA OF UTERUS, UNSPECIFIED (3) Menorrhagia Code(s): N92.0 - EXCESSIVE AND FREQUENT MENSTRUATION WITH REGULAR CYCLE Qualifiers: Assessment/Plan (1) Symptomatic anemia Assessment/Plan: -received 3 units total with proper response -monitor today -if H/H remains stable, discharge tomorrow Code(s): D64.9 - ANEMIA, UNSPECIFIED (2) Uterine fibroid Assessment/Plan: -gynecology consulted -? if needs fibroidectomy or hysterectomy Code(s): D25.9 - LEIOMYOMA OF UTERUS, UNSPECIFIED (3) Menorrhagia Assessment/Plan: -given IV estrogen to help control bleeding -bleeding currently resolved Code(s): N92.0 - EXCESSIVE AND FREQUENT MENSTRUATION WITH REGULAR CYCLE Qualifiers:
[2018-03-31 03:23] VITALS: TEMP 98.4
[2018-03-31 08:38] VITALS: BP 133/72; PULSE 91
[2018-03-31 12:32] LABS: HEMATOCRIT 25.4 % (32.4-45.2); HEMOGLOBIN 7.9 GM/dL (10.7-15.3); MCHC 31.1 g/dl (32.0-36.0); MEAN CELL VOLUME 70.7 fl (80-96); MEAN PLT VOLUME 8.8 fl (7.5-11.1); PLATELET COUNT 287 K/MM3 (134-434); RBC 3.59 M/mm3 (3.60-5.2); WHITE BLOOD COUNT 7.6 K/mm3 (4.0-10.0)
--- NOTE | 2018-03-31 16:45 | DS ---
Physical Examination Vital Signs: Vital Signs Temperature 36.9 C 03/31/18 08:37 Pulse Rate 91 H 03/31/18 08:37 Respiratory Rate 18 03/31/18 08:37 Blood Pressure 133/72 03/31/18 08:37 O2 Sat by Pulse Oximetry (%) 100 03/30/18 21:00 Constitutional: Yes: Well Nourished, No Distress, Calm Cardiovascular: Yes: Regular Rate and Rhythm. No: Gallop, Murmur, Rub Respiratory: Yes: Regular, CTA Bilaterally. No: Rales, Rhonchi, Wheezes Gastrointestinal: Yes: Normal Bowel Sounds, Soft. No: Distention, Tenderness Extremities: Yes: WNL Edema: No Labs: CBC, BMP 03/31/18 11:55 03/30/18 06:00 Discharge Summary Reason For Visit: ENCOUNTER FOR BLOOD TRANSFUSION, HISTORY OF UTERIN Hospital Course: Ms León is a very pleasant 47 year old female who came in with symptomatic anemia secondary to menorrhagia. She was admitted to the hospital and transfused 3 units. She was given estrogen per gynecology recommendations. Her bleeding stopped and her H/H is stable. She is currently safe for discharge. She will follow up with IM and gynecology to discuss further options. 31 minutes spent in preparation of this discharge Condition: Stable - Instructions Diet, Activity, Other Instructions: Resume previous diet and activity. Referrals: Ailyn Henning MD [Non Staff, Medical] - Disposition: HOME - Home Medications Comprehensive Discharge Medication List: Ambulatory Orders Amlodipine Besylate [Norvasc -] 5 mg PO DAILY 08/02/17
== END 2018-03-31 14:42 | disposition home or self-care (01) | DRG 532 ==
LOC: JER 07:29 → JERBED 09:49 → J6S 12:06
PROVIDERS: ADMIT Internal Medicine; ATTEND Internal Medicine
PROC: 30233N1 Transfusion of Nonautologous Red Blood Cells into Peripheral Vein, Percutaneous Approach (ICD-10-PCS; principal; 2018-03-29)
DX: N92.0 Excessive and frequent menstruation with regular cycle (principal); D62 Acute posthemorrhagic anemia; D25.9 Leiomyoma of uterus, unspecified; I10 Essential (primary) hypertension; J45.909 Unspecified asthma, uncomplicated; K21.9 Gastro-esophageal reflux disease without esophagitis; E66.9 Obesity, unspecified; Z68.35 Body mass index [BMI] 35.0-35.9, adult
CPT/HCPCS: 36415; 36430; 71045-TC-FY; 80048; 83735; 84100; 84703; 85025; 85027; 85610; 85730; 86850; 86900; 86901; 86922; 90688; 93005; 93010; 99285-25; G0008; J1410; P9038; P9058

== ENCOUNTER 2018-04-27 07:39 | Day surgery (SDC) | payer OTHER ==
[2018-04-24 09:34] VITALS: BMI 34.3
--- NOTE | 2018-04-27 08:46 | HP ---
Admitting History and Physical - Admission Chief Complaint: DUB History of Present Illness: 48yo with DUB and anemia presents for Diag Hysteroscopy, Endometrial ablation. Longstanding history of HMB, despite HSC myomectomy/polypectomy within the year. Numerous blood transfusions performed. History Source: Patient Limitations to Obtaining History: No Limitations - Past Medical History MACHINE STAPLER: No: Alzheimer's, CVA, Dementia, Migraine, Multiple Sclerosis, Peripheral Neuropathy, Parkinson's, Seizure, Syncope, TIA, Vertigo, Other Cardiovascular: Yes: HTN Gastrointestinal: Yes: GERD ...LMP: 03/25/18 ...: No Heme/Onc: Yes: Anemia - Past Surgical History Past Surgical History: Yes: , Upper Endoscopy - Smoking History Smoking history: Never smoked Have you smoked in the past 12 months: No - Alcohol/Substance Use Hx Alcohol Use: No History of Substance Use: reports: None - Social History ADL: Independent History of Recent Travel: No Home Medications - Allergies Allergies/Adverse Reactions: Allergies Allergy/AdvReac Type Severity Reaction Status Date / Time Penicillins Allergy Verified 04/27/18 08:08 shellfish derived Allergy Verified 04/27/18 08:11 - Home Medications Home Medications: Ambulatory Orders Amlodipine Besylate [Norvasc -] 5 mg PO DAILY 08/02/17 Docusate Sodium [Colace] 100 mg PO DAILY 04/24/18 Estrogen,Con/M-Progest Acet [Premphase 0.625-5 mg Tablet] 1 each PO DAILY Ferrous Sulfate [Iron] 325 mg PO DAILY 04/24/18 Family Disease History - Family Disease History Family Disease History: Heart Disease: Father (HTN), Mother (HTN) Review of Systems - Review of Systems Constitutional: denies: No Symptoms, Chills, Diaphoresis, Fever, Lethargy, Loss of Appetite, Malaise, Night Sweats, Unintentional Wgt. Loss, Weakness, Other Cardiovascular: denies: No Symptoms, Chest Pain, Edema, Palpitations, Shortness of Breath, Other Respiratory: denies: No Symptoms, Cough, Exercise Intolerance, Hemoptysis, Orthopnea, PND, Snoring, SOB, SOB on Exertion, Wheezing, Other Gastrointestinal: denies: No Symptoms, Abdominal Pain, Bloating, Constipation, Diarrhea, Dysphagia, Indigestion, Melena, Nausea, Rectal Bleeding, Vomiting, Vomiting Blood, Other Genitourinary: reports: Vaginal Bleeding Musculoskeletal: denies: No Symptoms, Back Pain, Crepitus, Decreased ROM, Extremity Pain, Joint Pain, Joint Swelling, Muscle Pain, Muscle Cramps, Muscle Weakness, Other Hematology/Lymphatic: reports: Excessive Bleeding Physical Examination Vital Signs: Vital Signs Temperature 99.0 F 04/27/18 08:07 Pulse Rate 93 H 04/27/18 08:07 Respiratory Rate 20 04/27/18 08:07 Blood Pressure 136/75 04/27/18 08:07 O2 Sat by Pulse Oximetry (%) Constitutional: Yes: Well Nourished, No Distress, Calm Eyes: Yes: WNL, Conjunctiva Clear, EOM Intact HENT: Yes: WNL, Atraumatic, Normocephalic Neck: Yes: WNL, Supple, Trachea Midline Cardiovascular: Yes: WNL, Regular Rate and Rhythm Respiratory: Yes: WNL, Regular, CTA Bilaterally Gastrointestinal: Yes: WNL, Normal Bowel Sounds Musculoskeletal: Yes: WNL Extremities: Yes: WNL Edema: No Integumentary: Yes: WNL Neurological: Yes: WNL, Alert, Oriented ...Motor Strength: WNL Psychiatric: Yes: WNL Imaging - Results Ultrasound: Report Reviewed Problem List - Problems (1) DUB (dysfunctional uterine bleeding) Code(s): N93.8 - OTHER SPECIFIED ABNORMAL UTERINE AND VAGINAL BLEEDING Assessment/Plan 48yo with DUB and anemia here for endometrial ablation, ovarian cystectomy Previously counseled regarding nature of procedure. Risk of procedure including , bleeding, infection, injury/perforation to surrounding organs/tissue discussed. We reviewed ablation may stop her bleeding altogether or lead to a/c tech periods ongoing till menopause. Given her anemia, minimally invasive surgery preferable at this time. Last sono made note of a new ovarian cyst, discussed LSC at time of ablation to remove the ovarian cyst, possible oophrectomy. All questions answered; consent signed. NPO, IVFs SCDs Drea Carmona MD
[2018-04-27] MEDS ORDERED: ROCURONIUM BROMIDE 50 MG/5 ML VIAL ONE ×2 (10:40→11:44)
[2018-04-27] MEDS ORDERED: fentaNYL CITRATE 250 MCG/5 ML VIAL ONE (10:40)
[2018-04-27] MEDS ORDERED: SUCCINYLCHOLINE CHLORIDE 200 MG/10 ML VIAL ONE (10:40)
[2018-04-27] MEDS ORDERED: MIDAZOLAM HCL 2 MG/2 ML SINGLE DOSE VIAL ONE (10:41)
[2018-04-27] MEDS ORDERED: KETOROLAC TROMETHAMINE 30 MG/1 ML VIAL ONE (11:12)
[2018-04-27] MEDS ORDERED: GLYCOPYRROLATE 0.2 MG/1 ML VIAL ONE (12:13)
[2018-04-27] MEDS ORDERED: NEOSTIGMINE METHYLSULFATE 0.5 MG/ML - 10 ML MDV ONE (12:13)
[2018-04-27] MEDS ORDERED: oxyCODONE HCL 5 MG TABLET PO PRN (12:42)
[2018-04-27] MEDS ORDERED: ONDANSETRON 4 MG/2 ML VIAL IVPUSH PRN (12:42)
[2018-04-27] MEDS ORDERED: LACTATED RINGERS SOLUTION 1,000 ML IV SCH (12:45)
--- NOTE | 2018-04-27 12:47 | SURG ---
Surgery Lap Winder Note Lap Winder: Sheeba Tai PA-C Date of Service: 04/27/18 Diagnosis: Right ovarian cyst Procedure: Diagnostic laparoscopy, lysis of adhesions, Right Adenexal cystectomy, right salpingectomy I was present for the entirety of the operative procedure. For further detail, please refer to operative report.
[2018-04-27] MEDS ORDERED: oxyCODONE HCL 5 MG TABLET ONE ×2 (14:16→16:13)
[2018-04-27] MEDS ORDERED: oxyCODONE HCL 5 MG TABLET PO ONE (16:11)
[2018-04-27] MEDS ORDERED: ONDANSETRON 4 MG/2 ML VIAL IVPUSH ONE (16:39)
[2018-04-27] MEDS ORDERED: ONDANSETRON 4 MG/2 ML VIAL ONE (16:40)
[2018-04-27 18:27] VITALS: BP 132/71; PULSE 73; TEMP 99.1
--- NOTE | 2018-04-28 09:05 | OP ---
DATE OF OPERATION: 04/27/2018 PREOPERATIVE DIAGNOSIS: Dysfunctional uterine bleeding, right ovarian cyst. POSTOPERATIVE DIAGNOSIS: Dysfunctional uterine bleeding, right paratubal cyst, large submucosal fibroid. PROCEDURE: Diagnostic laparoscopy, lysis of adhesion, right salpingectomy, right paratubal cystectomy, left paratubal cystectomy, diagnostic hysteroscopy, dilation and curettage. ANESTHESIA: General. SURGEON: Drea Carmona MD DRILLER MACHINE: SUDHAKAR Mcgee INTRAVENOUS FLUIDS: Per anesthesia record. ESTIMATED BLOOD LOSS: 30 mL. URINE OUTPUT: Clear urine 800 mL at the end of the laparoscopy. COMPLICATIONS: None. CONDITION: Stable to recovery room. FINDINGS: Normal vagina, normal cervix, large intercavitary submucosal fibroid obscuring over 50% of the uterine cavity emanating from the posterior uterine wall with a wide base. There were omental adhesions to the anterior abdominal wall. There was an irregular gelatinous blood-filled cyst emanating from the patients right fallopian tube with a small irregular gelatinous-filled cyst also on the patients left fallopian tube. Pelvic adhesions from the fallopian tubes to the bilateral pelvic wall at the right ovary with dense adhesions to the posterior cul-de-sac, normal appendix. NATURE OF THE PROCEDURE: After the appropriate consents were signed, the patient was taken to the operating room where general anesthesia was administered. She was placed in lithotomy position. The abdomen and vagina were prepped in the normal sterile fashion. The drapes were applied after 3 minutes of drying for the abdominal prep. A Cooper catheter was inserted into the bladder. An umbilical incision was made after a time-out was performed confirming the correct patient and procedure. A 5-mm incision was made into the umbilicus to accommodate the 5-mm scope which was introduced under direct visualization. The abdomen was entered without difficulty. Immediately upon entry, a thick omental adhesion was noted infraumbilically, which secured vision of the pelvic anatomy. Attention was then made to place the patient in Trendelenburg position, and a left lower quadrant port was then inserted under direct visualization. This was a 5-mm port, as well. Using the LigaSure device, the omental adhesion was carefully taken down ensuring that no bowel was included. Once the adhesions were brought down, better visualization of the pelvis was noted. The uterus was anteverted, enlarged, with a right fundal fibroid subserosally. The patients left fallopian tube at the fimbriated edges was noted to be adhesed to the lateral colunga of the uterus with the ovary encompassed in those adhesions in a hammock-like fashion. The patients right fallopian tube was noted to be adhesed also out of fimbriated edges and throughout to the pelvic side wall. Although these adhesions were filmy in nature , there was an irregularly shaped gelatinous and blood-filled cluster of cysts noted emanating from the patients right fallopian tube. Upon further inspection of the left fallopian tube, there was also noted to be a small area of gelatinous irregularly shaped material on the left fallopian tube. This was easily grasped with a grasper and taken out and sent for pathology with the left fallopian tube. A right lower quadrant port was introduced originally as a 5-mm port, but upon further inspection and need to remove the contents of the cyst, it was converted to a 12-mm port. Using the LigaSure device, the thin adhesions from the left fallopian tube fimbriated edges along its lateral edges were dissected off of the left pelvic wall. The left fallopian tube was then transected at its insertion point to the uterus. The right fallopian tube was then removed through the right lower quadrant port. The gelatinous material was then segmentally removed. The abnormal cyst-like material was removed and the majority of its contents on the right side. Again, the right ovary was noted to be adhesed in the posterior cul-de-sac. All bite sites were noted to be hemostatic. The abdomen was then irrigated. No bleeding was seen. The 12-mm port was closed with a Jose-Adrianne with a 0 Vicryl. The left lower quadrant and umbilical ports were removed and closed on the skin with a 4-0 Biosyn with appropriate bandages placed. Attention was then pain to hysteroscopy for the endometrial ablation portion of the procedure. A sterile speculum was placed into the vagina with good visualization of the cervix. The anterior lip of the cervix was grasped with a single-tooth tenaculum. Cervix was dilated up to 23-Algerian using Acevedo dilator. The Skinkers Hysteroscope was then introduced through the cervix into the uterus. The abdomen was then inflated with saline. It was immediately noted that there was a large submucosal fibroid emanating with a broad base from the posterior aspect of the uterine wall. This fibroid obscured over 50% of the uterine cavity. Given the large nature of the fibroid and the inability to see the cavity in its entirety, endometrial ablation could not be performed. The hysteroscope was removed. Gentle curettage was performed and sent for pathology, as well, although prior biopsies showed benign endometrial curettage sampling before. Using a polyp forceps, the endometrial mass could not be grasped removal. Therefore, this procedure was completed without, inability to perform endometrial ablation. All the instruments were removed. The single-tooth tenaculum was removed off the anterior lip of the cervix. The bite sites were hemostatic. The speculum was removed. The Cooper catheter was removed. The sponge, lap, needle counts were correct. The patient was taken from the operating room in stable condition. There were no antibiotics given. MD TERRA BUCKLEY/[id number]
--- NOTE | 2018-05-01 18:17 | PATH ---
Surgical Pathology Report Patient Name: NYDIA NÚÑEZ [facility]. Rec. #: [id number] /Age/Gender: 1970 (Age: 48) / F Account: [id number] Location: [facility] SURGICAL Taken: 04/27/2018 Received: 04/28/2018 Reported: 05/01/2018 Physicians: Drea Carmona Specimen(s) Received A: RIGHT FALLOPIAN TUBE B: RIGHT PARATUBAL CYST C: LEFT PARATUBAL CYST D: ENDOMETRIAL CURETTINGS Clinical History Dysfunctional uterine bleeding Final Diagnosis A. FALLOPIAN TUBE, RIGHT, LAPAROSCOPIC SALPINGECTOMY: FALLOPIAN TUBE WITH DILATED LUMEN, ADHESIONS, AND MILD CHRONIC INFLAMMATION CONSISTENT WITH MILD CHRONIC SALPINGITIS. B. PARATUBAL CYST, RIGHT, CYSTECTOMY: FRAGMENTS OF BENIGN CYST LINING AND MESOTHELIAL PROLIFERATION COMPATIBLE WITH PELVIC/PERITONEAL INCLUSION CYST/S. FOCAL AREAS OF HEMORRHAGE AND HEMOSIDERIN DEPOSITION CONSISTENT WITH ENDOMETRIOSIS. SEE COMMENT. C. PARATUBAL CYST, LEFT, CYSTECTOMY: FRAGMENTS OF BENIGN CYST LINING AND MESOTHELIAL PROLIFERATION COMPATIBLE WITH PELVIC/PERITONEAL INCLUSION CYST/S. FOCAL AREAS OF HEMORRHAGE AND HEMOSIDERIN DEPOSITION CONSISTENT WITH ENDOMETRIOSIS. SEE COMMENT. D. ENDOMETRIAL CURETTINGS, DILATATION AND CURETTAGE: RARE INACTIVE AND FEW STRIPS OF ENDOMETRIAL GLANDS, SMOOTH MUSCLE FRAGMENTS CONSISTENT WITH SUBMUCOSAL LEIOMYOMA, LOWER UTERINE SEGMENT, AND BENIGN CERVICAL SQUAMOUS TISSUE. Comment: Immunohistochemical stains performed at [place], [place] ([id number]; B,C) and interpreted at [facility] for CD10 highlights endometrial stroma. Mesothelial cell lining and proliferation are positive for D2-40 and calretinin. Suggest clinical correlation. Electronically Signed Ailyn San M.D. Gross Description A. Received in formalin labeled "right fallopian tube," is a 4.5 cm in length fimbriated portion of fallopian tube. The outer surface is avalos owusu with focal adhesions. Sectioning reveals a focally dilated lumen. Cylinder [employer] Machine Operator sections are submitted in 2 cassettes as follows: 1-fimbria; 2-cross sections of fallopian tube. B. Received in formalin labeled "right paratubal cyst," is a 4.0 x 3.0 x 1.0 cm aggregate of avalos-mayers, focally cystic portions of soft tissue. Cylinder Die Machine Operator sections are submitted in 2 cassettes. C. Received in formalin labeled "left paratubal cyst," is a 1.7 x 0.9 x 0.3 cm avalos owusu portion of soft tissue, consistent with a disrupted cyst. The specimen is submitted in toto in one cassette. D. Received in formalin labeled "endometrial curettings," is a 1.5 x 1.1 x 0.2 cm aggregate of avalos-brown soft tissue fragments. The formalin is filtered and the specimen is entirely submitted in one cassette. 04/28/2018 [facility]04/28/2018
== END 2018-04-27 18:22 | disposition home or self-care (01) ==
LOC: JASU-SURG 07:39
PROVIDERS: ATTEND Obstetrics & Gynecology
PROC: 0UB74ZX Excision of Bilateral Fallopian Tubes, Percutaneous Endoscopic Approach, Diagnostic (ICD-10-PCS; principal; 2018-04-27 08:00)
PROC: 0UT54ZZ Resection of Right Fallopian Tube, Percutaneous Endoscopic Approach (ICD-10-PCS; 2018-04-27 08:00)
PROC: 0UDB7ZX Extraction of Endometrium, Via Natural or Artificial Opening, Diagnostic (ICD-10-PCS; 2018-04-27 08:00)
PROC: 0UJD8ZZ Inspection of Uterus and Cervix, Via Natural or Artificial Opening Endoscopic (ICD-10-PCS; 2018-04-27 08:00)
DX: N93.9 Abnormal uterine and vaginal bleeding, unspecified (principal); N83.8 Other noninflammatory disorders of ovary, fallopian tube and broad ligament; D25.0 Submucous leiomyoma of uterus
CPT/HCPCS: 88304-TC; 88305-TC; 94760

== ENCOUNTER → 2020-02-08 | Day surgery (SDC) | payer OTHER ==
[2020-02-03 15:51] VITALS: BMI 37.8
[2020-02-08 10:47] VITALS: TEMP 98
[2020-02-08 11:32] VITALS: BP 128/74; PULSE 74
== END | disposition home or self-care (01) ==
LOC: JASU-ENDO 05:02
PROVIDERS: ATTEND Internal Medicine Gastroenterology
PROC: 0DBM8ZX Excision of Descending Colon, Via Natural or Artificial Opening Endoscopic, Diagnostic (ICD-10-PCS; principal; 2020-02-08 10:30)
DX: Z12.11 Encounter for screening for malignant neoplasm of colon (principal); Z85.038 Personal history of other malignant neoplasm of large intestine; D12.4 Benign neoplasm of descending colon; K64.8 Other hemorrhoids
CPT/HCPCS: 88305-TC

== ENCOUNTER 2023-02-24 10:11 | Day surgery (SDC) | payer OTHER ==
[2023-02-24 09:26] VITALS: BMI 37.5
[2023-02-24 11:38] VITALS: TEMP 98
[2023-02-24 12:14] VITALS: BP 111/63; PULSE 65; RESP 15
== END 2023-02-24 12:45 | disposition home or self-care (01) ==
LOC: JASU-ENDO 10:11
PROVIDERS: ATTEND Internal Medicine Gastroenterology
PROC: 0DBP8ZX Excision of Rectum, Via Natural or Artificial Opening Endoscopic, Diagnostic (ICD-10-PCS; 2023-02-24)
PROC: 0DBF8ZX Excision of Right Large Intestine, Via Natural or Artificial Opening Endoscopic, Diagnostic (ICD-10-PCS; principal; 2023-02-24 10:30)
DX: Z12.11 Encounter for screening for malignant neoplasm of colon (principal); D12.8 Benign neoplasm of rectum; K64.8 Other hemorrhoids; K62.1 Rectal polyp; Z86.010 Personal history of colon polyps
CPT/HCPCS: 88305-TC

== ENCOUNTER 2023-05-15 04:14 | Day surgery (SDC) | payer OTHER ==
[2023-05-12 11:40] VITALS: BMI 37.0
[2023-05-15 10:30] VITALS: TEMP 97.8
[2023-05-15 10:58] VITALS: BP 133/73; PULSE 64; RESP 13
== END 2023-05-15 11:07 | disposition home or self-care (01) ==
LOC: JASU-ENDO 04:14
PROVIDERS: ATTEND Internal Medicine Gastroenterology
PROC: 0DB68ZX Excision of Stomach, Via Natural or Artificial Opening Endoscopic, Diagnostic (ICD-10-PCS; 2023-05-15)
PROC: 0DB68ZX Excision of Stomach, Via Natural or Artificial Opening Endoscopic, Diagnostic (ICD-10-PCS; 2023-05-15)
PROC: 0DB38ZX Excision of Lower Esophagus, Via Natural or Artificial Opening Endoscopic, Diagnostic (ICD-10-PCS; principal; 2023-05-15 09:45)
DX: K20.90 Esophagitis, unspecified without bleeding (principal); K29.50 Unspecified chronic gastritis without bleeding; K31.7 Polyp of stomach and duodenum; I10 Essential (primary) hypertension
CPT/HCPCS: 88305-TC; 88312-TC; 88342-TC

== ENCOUNTER 2023-08-20 16:08 | Emergency (ER) | payer OTHER ==
[2023-08-20 16:19] VITALS: BP 142/80; PULSE 80; RESP 18; TEMP 98; BMI 37.5
[2023-08-20] MEDS ORDERED: FLUORESCEIN NA 1 EA STRIP ONE (17:18)
[2023-08-20] MEDS ORDERED: TETRACAINE 0.5% OPHTH SOLN 2 ML BOTTLE ONE (17:18)
[2023-08-20] MEDS ORDERED: ERYTHROMYCIN 0.5% OPHTHALMIC OINTMENT 3.5 GM TUBE ONE (17:18)
[2023-08-20] MEDS: TETRACAINE 0.5% HCL 0.6ML DROPPER.BOTTLE OD ONE (17:19)
[2023-08-20] MEDS: FLUORESCEIN NA 1 EA STRIP OU ONE (17:19)
[2023-08-20] MEDS: ERYTHROMYCIN 0.5% OPHTHALMIC OINTMENT 3.5 GM TUBE OU STA (17:19)
== END 2023-08-20 17:54 | disposition home or self-care (01) ==
LOC: JERFT 16:08
DX: S05.02XA Injury of conjunctiva and corneal abrasion without foreign body, left eye, initial encounter (principal); X58.XXXA Exposure to other specified factors, initial encounter
CPT/HCPCS: 99283-25